=== PATIENT | female | born 1960 | race Caucasian/White ===

== ENCOUNTER 2023-07-24 11:07 | Outpatient (AMB) | payer OTHER, SELFPAY ==
[2023-07-24 11:30] VITALS: BP 164/92; PULSE 70; RESP 17; O2SAT 98; BMI 27.1
--- NOTE | 2023-07-24 11:30 | A.OFFPC_ITS ---
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 ( Request PE ) Medication Coordinator Required: No Accompanied by: Self / Same As Patient Allergies Codeine Sulfate Allergy (Unknown, Uncoded 07/24/23 11:41) Agitated Neosporin Allergy (Unknown, Uncoded 07/24/23 11:41) Hives Medication List - Last Reconciled 07/24/23 by Kaz [place] PA-C clonazepam 1 mg PO BID PRN clotrimazole 1% 1 appl topical BID Tobacco use date assessed: 07/24/23 Fall risk assessment: No Falls in past year Last assessed Fall Risk: 07/24/23 Dental Screening Dental Screen Date: 07/24/23 Did you have a dental visit in the last 12 months?: No Did you have a dental problem in the last 6 months where you did not have access to dental care?: No Was dental information given to patient?: Patient has dentist HPI 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 Patient has a past medical history significant for hypertension, generalized anxiety disorder .. Hypertension: Was on blood pressure medication 2 years ago though was able to discontinue blood pressure medication due to better lifestyle. Today in office blood pressure elevated at 160/90. We did discuss starting blood pressure medication though she would like to hold off and continue monitoring and working on lifestyle modifications to reduce her blood pressure .. Generalized anxiety disorder: She continues to follow psychiatrist whom manages her mental health medication. Was on SSRI therapy in the past though felt to was not effective for her. She does use clonazepam on a daily basis at this time. She does report her living situation is not the past and causes her more anxiety. . History left thyroidectomy: Today in office of noted ? Goiter vs right thyroid lobe nodule on physical exam today. She is willing to get tried ultrasound for evaluation. Vaccines: Declines all vaccines at this time Mammogram: Declines Colon cancer screening: Declines [facility] Social History (Updated 07/24/23 @ 11:48 by Kaz [place], PA-C) Alcohol intake: never Patient Tobacco Use Status: Never used Tobacco e-Cigarette/Vaping Use: Never Used service: No Current occupational status: disabled Cognitive needs: No Hearing needs: No Vision needs: No Questionnaire PHQ-9 Over the last 2 weeks, how often have you been bothered by any of the following problems? 22206 - PHQ-9 Billing: Patient declined-do not bill Source: Developed by Drs. Yash Tierney, Sailaja Huang, Lee Diggs and colleagues, with an educational nara from [employer]. Thrive Questionnaire Date Thrive assessed: 07/24/23 I am a: Patient What is your living situation today?: I have a steady place to live Within the past 12 months, did the food you bought not last and you didn't have the money to get more?: Never true Within the past 12 months, did you worry whether your food would run out before you got money to buy more?: Never true Currently or been in a relationship where the following occur: no concerns reported GEORGE-7 AMB Questionnaire GEORGE-7 Date GEORGE - 7 assessed: 07/24/23 (Pt decline) Source: Developed by Drs. Yash Tierney, Sailaja Huang, Lee Diggs and colleagues, with an educational nara from [employer]. Review of Systems Const Denies headache(s) Eyes Denies loss of vision ENT Denies vertigo, Denies dizziness, Denies headache(s) and Denies sore throat Card Denies chest pain, Denies leg edema and Denies lightheadedness Resp Denies cough, Denies hemoptysis and Denies wheezing GI Denies abdominal pain, Denies melena, Denies constipation, Denies diarrhea and Denies vomiting Denies urinary frequency, Denies dysuria and Denies urinary urgency Musc Denies arthralgias, Denies joint swelling, Denies numbness and Denies tingling Neuro Denies Abnormal speech present, Denies behavioral changes, Denies vertigo, Denies dizziness, Denies headache(s), Denies loss of vision, Denies memory loss, Denies numbness and Denies tingling Psych Denies anxiety, Denies behavioral changes, Denies depression, Denies memory loss and Denies panic attacks Tony/Lymph Denies easy bleeding and Denies easy bruising Aller/Immun Denies wheezing Physical exam (Primary Care) Vital Signs: Last Vital Signs Pulse 70 07/24/23 11:30 Resp 17 07/24/23 11:30 BP 164/92 H 07/24/23 11:30 Pulse Ox 98 07/24/23 11:30 Oxygen Delivery Method Room Air 07/24/23 11:30 BMI result Body Mass Index 27.1 Tobacco/Smoking Status: Tobacco use Status Tobacco use date assessed 07/24/23 07/24/23 11:39 Patient Tobacco Use Status Never used Tobacco 07/24/23 11:48 e-Cigarette/Vaping Use Never Used 07/24/23 11:48 Thrive Assessment: Date of Thrive Assessment Date Thrive assessed 07/24/23 07/24/23 11:39 Currently or been in a relationship where the following occur: no concerns reported Const General: healthy appearing, no acute distress, alert and awake Nutritional Appearance: well nourished Orientation/consciousness: oriented to person, oriented to place and oriented to time HENMT Ears: TM's normal bilaterally General nose exam: Normal nasal mucous membranes and turbinates present Eyes Conjunctivae: conjunctivae normal Sclerae: sclerae normal Pupils: Equal, round and reactive pupils present Neck Neck: Yes no lymphadenopathy and Yes no JVD Thyroid: Thyroid normal Carotids: no bruits Resp Effort & Inspection: normal respiratory effort and not tachypneic Auscultation: no crackles, no rales, no rhonchi and no wheezes Cardio Rate: regular rate Rhythm: regular rhythm Heart sounds: no murmurs and normal S1 and S2 GI Palpation (GI): Soft to palpation, nontender, no hepatomegaly and no splenomegaly Auscultation: normal bowel sounds Skin General skin exam: no rashes or lesions noted and dry skin Neuro General: oriented to person, oriented to place and oriented to time Cranial nerves: Yes Equal, round and reactive pupils present Speech: No Abnormal speech present Gait exam (Neuro): Normal gait present Motor exam (neuro): no tremor noted Extrem Right upper extremity: full ROM Left upper extremity: full ROM Right lower extremity: full ROM; no edema Left lower extremity: full ROM; no edema Psych Mental Status: mental status grossly normal Speech and movement: Normal speech and movement present Affect: normal affect Attitude: cooperative Thought process: Normal thought process present Assessment and Plan Assessment & Plan (1) HTN (hypertension): Code(s): I10 - Essential (primary) hypertension Qualifiers: Hypertension type: primary hypertension Qualified Code(s): I10 - Essential (primary) hypertension Plan: Blood pressure elevated today in office. She attributes her elevations in her blood pressure to her stress and anxiety at this time. She would like to continue monitoring blood pressure at home and work on lifestyle modifications before restarting blood pressure medication. Goal blood pressure is to be below 140/90 (2) GEORGE (generalized anxiety disorder): Code(s): F41.1 - Generalized anxiety disorder Plan: Patient has been suffering with more anxiety and depression to which she is being with a psychiatrist about. She continues to use clonazepam which she reports is helpful for her. We did discuss the habit-forming nature of this medication and patient agrees and understands (3) Hypothyroid: Code(s): E03.9 - Hypothyroidism, unspecified Qualifiers: Hypothyroidism type: acquired Qualified Code(s): E03.9 - Hypothyroidism, unspecified (4) Dermatitis: Code(s): L30.9 - Dermatitis, unspecified (5) Thyromegaly: Code(s): E01.0 - Iodine-deficiency related diffuse (endemic) goiter Plan: Noted is a right-sided thyroid mass today on physical exam. She denies any issues with swallowing or any compressive symptoms. She is willing to get ultrasound to evaluate. (6) S/P thyroidectomy: Code(s): E89.0 - Postprocedural hypothyroidism Orders: Orders Comprehensive [place]. Panel Fast Today I10 - Essential (primary) hypertension TSH reflex Free T4 Today E03.9 - Hypothyroidism, unspecified US thyroid Today E01.0 - Iodine-deficiency related diffuse (endemic) goiter Microalbumin, Random (w Creat) Today I10 - Essential (primary) hypertension Lipid Panel Today I10 - Essential (primary) hypertension PTHI Today E03.9 - Hypothyroidism, unspecified Medications: New clotrimazole-betamethasone 1-0.05 % 1 appl topical BID 30 days 45 grams 1RF L30.9 - Dermatitis, unspecified Coding Level of Care Code New Pt Level 4 (04326) Diagnoses Primary hypertension I10 Hypertension type: primary hypertension GEORGE (generalized anxiety disorder) F41.1 Acquired hypothyroidism E03.9 Hypothyroidism type: acquired Dermatitis L30.9 Thyromegaly E01.0 S/P thyroidectomy E89.0
== END 2023-07-24 12:05 | disposition home or self-care (01) ==
PROVIDERS: PCP Physician Assistant; Visit Provider Physician Assistant
DX: I10 Essential (primary) hypertension (principal); F41.1 Generalized anxiety disorder; E03.9 Hypothyroidism, unspecified; L30.9 Dermatitis, unspecified; E01.0 Iodine-deficiency related diffuse (endemic) goiter; E89.0 Postprocedural hypothyroidism
CPT/HCPCS: 99204

== ENCOUNTER 2023-08-06 14:55 | Outpatient (REF) | payer OTHER, SELFPAY ==
--- NOTE | ~2023-08-06 | US_ITS ---
EXAMINATION: US THYROID CLINICAL INFORMATION: Iodine-deficiency related diffuse (endemic) goiter. History of left thyroidectomy. Noted enlargement right thyroid lobe. COMPARISON: None available. TECHNIQUE: Linear transducer roldan-scale and color Doppler examination with attention to the region of the thyroid. FINDINGS: SIZE: Measurements of the solitary right thyroid lobe and nodules are given in sagittal, anteroposterior and transverse dimensions respectively. Right Thyroid Lobe: 5.8 x 2.4 x 2.8 cm, volume 20.4 mL. Parenchyma: The gland echotexture is homogeneous. Thyroid vascularity is normal. Left Thyroid Lobe: Surgically absent. Isthmus: 0.5 cm in maximum AP dimension. Estimated total number of nodules greater than or equal to 1 cm: 1. 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 Location: Right superior. Size: 0.4 x 0.3 x 0.4 cm, volume 0.03 mL. Nodule characteristics: Composition: Solid (2). Echogenicity: Isoechoic (1). Shape: Not taller than wide (0). Margins: Smooth (0). Echogenic Foci: None (0). ACR TI-RADS total points: 3 ACR TI-RADS category: 3 2. Location: Right superior. Size: 0.9 x 0.4 x 0.6 cm, volume 0.1 mL. Nodule characteristics: Composition: Solid (2). Echogenicity: Isoechoic (1). Shape: Not taller than wide (0). Margins: Smooth (0). Echogenic Foci: None (0). ACR TI-RADS total points: 3 ACR TI-RADS category: 3 3. Location: Right mid. Size: 0.6 x 0.4 x 0.6 cm, volume 0.08 mL. Nodule characteristics: Composition: Solid (2). Echogenicity: Isoechoic (1). Shape: Not taller than wide (0). Margins: Smooth (0). Echogenic Foci: None (0). ACR TI-RADS total points: 3 ACR TI-RADS category: 3 4. Location: Right inferior. Size: 2.3 x 1.9 x 2.0 cm, volume 4.5 mL. Nodule characteristics: Composition: Solid (2). Echogenicity: Isoechoic (1). Shape: Not taller than wide (0). Margins: Smooth (0). Echogenic Foci: Punctate echogenic foci (3). ACR TI-RADS total points: 6 ACR TI-RADS category: 4 5. Location: Right inferior. Size: 0.7 x 0.3 x 0.6 cm, volume 0.07 mL. Nodule characteristics: Composition: Solid (2). Echogenicity: Hypoechoic (2). Shape: Not taller than wide (0). Margins: Smooth (0). Echogenic Foci: None (0). ACR TI-RADS total points: 4 ACR TI-RADS category: 4 NODES: No lymphadenopathy is seen in the tissue surrounding the thyroid gland. US/US thyroid IMPRESSION: 1. Left thyroid lobe surgically absent. 2. Multiple right thyroid nodules. Right lower 2.3 cm TR 4 thyroid nodule meets criteria for biopsy. Fine-needle aspiration recommended. This study was presented today 08/07/2023 at 9:43 AM for interpretation. PSA staff will provide results to referring provider at this time. ACR TI-RADS RECOMMENDATION REFERENCE: Ultrasound-guided fine-needle aspiration, followup ultrasound, no further follow up. * TR1 (0 point) and TR2 (2 points): No FNA or follow up. * TR3 (3 points): FNA if more than or equal to 2.5 cm in maximum dimension, followup ultrasound in 1, 3 and 5 years if 1.5 to 2.4 cm in maximum dimension. * TR4 (4-6 points): FNA if more than or equal to 1.5 cm in maximum dimension, followup ultrasound in 1, 2, 3 and 5 years if 1 to 1.4 cm in maximum dimension. * TR5 (more than or equal to 7 points): FNA if more than or equal to 1 cm in maximum dimension, followup ultrasound every year for 5 years if 0.5 to 0.9 cm in maximum dimension. * TR3, TR4 or TR5 nodules that are below the size threshold for followup receive no follow up.
== END 2023-08-06 14:56 | disposition home or self-care (01) ==
LOC: HO.US 14:55
PROVIDERS: PCP Physician Assistant; Visit Provider Physician Assistant
DX: E01.0 Iodine-deficiency related diffuse (endemic) goiter (principal)
CPT/HCPCS: 76536

== ENCOUNTER 2023-08-27 09:54 | Outpatient (REF) | payer OTHER, SELFPAY ==
--- NOTE | ~2023-08-27 | US_ITS ---
ULTRASOUND-GUIDED THYROID NODULE FINE NEEDLE ASPIRATION INDICATION: Right lower pole thyroid nodule, dominant, for biopsy/FNA Procedure: Informed consent was obtained from the patient prior to the procedure. During this process, the procedure and potential alternatives were explained, along with the intended outcome and benefits. The risks of the procedure, as well as the risks of not doing the procedure, were discussed. The patient was given the opportunity to ask questions regarding the procedure and appeared competent to make medical decisions. A signed consent form which documents this discussion was placed in the medical record. A timeout was performed in the room. The patient was placed in a supine position with the neck extended. The right side of the neck and chest was prepped and draped in routine sterile fashion. 1% lidocaine was used anesthesia 4 skin and subcutaneous tissues. Under real-time ultrasound guidance, a 25-gauge needle was placed into the nodule and FNA was performed utilizing standard technique. A total of 4 aspirations were performed. The specimens were placed in CytoLyt and and the Affirma bottle. Postprocedure images showed no hematoma. A Band-Aid was applied to the access site. The patient tolerated the procedure well with no immediate complications. Permanent ultrasound images were archived to the procedure. US/US biopsy thyroid IMPRESSION: Right thyroid nodule fine-needle aspiration. Await pathology. This procedure was performed by Baldemar Correa PA-C, and directly supervised by Dr. Cramer
[2023-08-27] MEDS: Lidocaine HCl 1 % MPF 5 ML VIAL SUBCUT (11:10)
== END 2023-08-27 09:55 | disposition home or self-care (01) ==
LOC: HO.US 09:54
PROVIDERS: PCP Physician Assistant; Visit Provider Physician Assistant
DX: E01.0 Iodine-deficiency related diffuse (endemic) goiter (principal)
CPT/HCPCS: 10005; 88173; 88305

== ENCOUNTER → 2023-08-27 09:56 | Outpatient (BNV) | payer OTHER, SELFPAY | PROVIDERS: PCP Physician Assistant; Visit Provider Radiology Diagnostic Radiology | DX: E04.1 Nontoxic single thyroid nodule (principal) | CPT/HCPCS: 10005 ==

== ENCOUNTER 2024-04-09 12:20 | Outpatient (AMB) | payer OTHER, SELFPAY ==
--- NOTE | 2024-04-09 12:46 | MHC.PC.OV ---
Vital Signs 04/09/24 12:47 Height 5 ft 6 in Weight 170 lb BMI 27.4 BP 152/90 H Blood Pressure Location Lt brachial Position Sitting Pulse 80 Pulse Source Pulse Oximeter Pulse Oximetry (%) 98 Oxygen Delivery Method Room Air Intake Visit Reasons: Physical Exam Intake Note: Patient is here today for a physical. Tribunal Member Required: No Accompanied by: Self / Same As Patient Allergies Codeine Sulfate Allergy (Unknown, Uncoded 04/09/24 13:04) Agitated Neosporin Allergy (Unknown, Uncoded 04/09/24 13:04) Hives Medication List - Last Reconciled 04/09/24 by Kaz Gillette PA-C clonazepam 1 mg PO BID PRN clotrimazole-betamethasone 1-0.05 % 1 appl topical BID 30 days Tobacco use date assessed: 04/09/24 Fall risk assessment: No Falls in past year Last assessed Fall Risk: 04/09/24 Dental Screening Dental Screen Date: 04/09/24 Did you have a dental visit in the last 12 months?: Yes Did you have a dental problem in the last 6 months where you did not have access to dental care?: No Was dental information given to patient?: Patient has dentist HPI Physical Exam HPI Details Patient is a 63-year-old female here today for a PE. Patient has a past medical history significant for hypertension, generalized anxiety disorder .. Hypertension: Was on blood pressure medication 2 years ago though was able to discontinue blood pressure medication due to better lifestyle. Today in office blood pressure elevated . We did discuss starting blood pressure medication and she is willing to restart losartan 50 mg. .. Generalized anxiety disorder: She continues to follow psychiatrist whom manages her mental health medication. Was on SSRI therapy in the past though felt to was not effective for her. She does use clonazepam on a daily basis at this time. She does report her living situation is not the past and causes her more anxiety. . Borderline high total cholesterol: Most recent labs showing borderline high cholesterol, will work on lifestyle and dietary modifications . History left thyroidectomy: Patient did undergo thyroid ultrasound and biopsy with benign pathology. She still concerned as she can still see a small lump in the right side of her neck. Out of abundance of caution will do a repeat ultrasound in the fall 2023 otherwise TSH has been stable. Vaccines: Declines all vaccines at this time Mammogram: Declines Colon cancer screening: Declines [facility] Social History (Updated 04/09/24 @ 13:09 by Kaz Gillette PA-C) Housing: House Alcohol intake: current Alcohol intake frequency: holidays/special occasions only Alcohol type: wine Patient Tobacco Use Status: Never used Tobacco e-Cigarette/Vaping Use: Never Used service: No Current occupational status: disabled Cognitive needs: No Hearing needs: No Vision needs: No Questionnaire PHQ-9 Over the last 2 weeks, how often have you been bothered by any of the following problems? 53189 - PHQ-9 Billing: Patient declined-do not bill Source: Developed by Drs. Yash Tierney, Lee Faye and colleagues, with an educational nara from [employer]. Thrive Questionnaire Date Thrive assessed: 04/09/24 I am a: Patient What is your living situation today?: I have a steady place to live Within the past 12 months, did the food you bought not last and you didn't have the money to get more?: Never true Within the past 12 months, did you worry whether your food would run out before you got money to buy more?: Never true Do you have trouble paying for medicines?: No Do you have trouble getting transportation to medical appointments?: No Do you have trouble paying your heating and electricity bill?: No Do you have trouble taking care of your child, family member or friend?: No Do you have trouble with day-to-day activities such as bathing, preparing meals, shopping, managing finances, etc.?: No Are you currently unemployed and looking for a job?: No Are you interested in more education?: No Please select the resources that you would like help with: None Currently or been in a relationship where the following occur: no concerns reported THRIVE Score: 0 AUDIT C Alcohol Use Questionnaire (AUDIT-C) 1. How often do you have a drink containing alcohol?: Monthly or less 2. How many drinks containing alcohol do you have on a typical day when you are drinking?: 1 or 2 3. How often do you have six or more drinks on one occasion?: Never Total Score: 1 GEORGE-7 AMB Questionnaire GEORGE-7 Date GEORGE - 7 assessed: 04/09/24 (Pt decline) Source: Developed by Drs. Yash L. Sailaja Tierney, Lee Diggs and colleagues, with an educational nara from [employer]. GEORGE-7 Assessment Billing GEORGE-7 Assessment Tool: pt declined-do not bill Review of Systems Const Denies body aches, Denies chills, Denies excessive sweating, Denies fatigue, Denies fever(s) and Denies headache(s) Eyes Denies blurry vision ENT Denies dysphagia, Denies vertigo, Denies dizziness, Denies headache(s), Denies hearing loss and Denies tinnitus Card Denies chest pain, Denies chest pain with activity, Denies syncope, Denies irregular heart rhythm and Denies dyspnea Resp Denies chest congestion, Denies cough, Denies hemoptysis, Denies dyspnea and Denies wheezing GI Denies abdominal pain, Denies melena, Denies hematochezia, Denies coffee ground emesis, Denies dysphagia, Denies diarrhea, Denies nausea and Denies vomiting Denies urinary frequency, Denies dysuria, Denies urinary hesitancy and Denies urinary urgency Musc Denies arthralgias, Denies limited range of motion, Denies muscle cramps and Denies muscle weakness Skin/Breast Denies rash and Denies skin ulcer Neuro Denies Abnormal speech present, Denies confusion, Denies vertigo, Denies dizziness, Denies syncope, Denies headache(s), Denies memory loss and Denies seizure-like activity Psych Denies anxiety, Denies confusion, Denies depression, Denies memory loss, Denies panic attacks and Denies paranoia Endo Denies excessive sweating, Denies fatigue, Denies flushing, Denies polydipsia and Denies polyuria Aller/Immun Denies wheezing Physical exam (Primary Care) Vital Signs: Last Vital Signs Pulse 80 04/09/24 12:47 BP 152/90 H 04/09/24 12:47 Pulse Ox 98 04/09/24 12:47 Oxygen Delivery Method Room Air 04/09/24 12:47 BMI result Body Mass Index 27.4 Tobacco/Smoking Status: Tobacco use Status Tobacco use date assessed 04/09/24 04/09/24 12:53 Patient Tobacco Use Status Never used Tobacco 04/09/24 12:46 e-Cigarette/Vaping Use Never Used 04/09/24 12:46 Thrive Assessment: Date of Thrive Assessment Date Thrive assessed 04/09/24 04/09/24 12:53 Currently or been in a relationship where the following occur: no concerns reported Const General: cooperative, comfortable, no acute distress, alert and awake; No confusion Orientation/consciousness: oriented to person, oriented to place, patient oriented x3 and No confusion HENUT Head: Yes normocephalic Ears: external ears normal and TM's normal bilaterally Face and sinus: No sinus tenderness Mouth: Normal oral and palatal mucosa present and tongue normal Teeth and gingiva: dentition normal and gingiva normal Throat: Yes posterior oropharynx normal, Yes tonsils normal and Yes uvula midline Eyes Conjunctivae: conjunctivae normal Sclerae: sclerae normal Pupils: Equal, round and reactive pupils present EOM: EOMs intact bilaterally Direct Ophthalmoscopy: No no photophobia Neck Neck: Yes no lymphadenopathy, No tender and Yes no JVD Thyroid: Thyroid normal Carotids: no bruits Chest Chest palpation & inspection: no tenderness Resp Effort & Inspection: normal respiratory effort, no audible wheezes, not labored and no stridor Auscultation: no crackles, no rales, no rhonchi and no wheezes Cardio Jugular venous distension: no JVD Rate: regular rate, not bradycardic and not tachycardic Rhythm: regular rhythm Bruits: no carotid bruits Peripheral pulses: Peripheral pulses 2+ throughout GI Inspection: Yes normal to inspection, No abdominal wall ecchymosis and No visible herniation Palpation (GI): Soft to palpation, nontender, no guarding, not rigid and No hepatosplenomegaly present Auscultation: normoactive bowel sounds General: Yes no CVA tenderness Back/Spine/Pelvis Back: no CVA tenderness and No back tenderness Cervical Spine: cervical ROM normal Thoracic/Lumbar Spine: thoracic and lumbar spine normal to inspection, straight leg raise negative bilaterally, No thoraco-lumbar ROM limited and No lumbar spinal tenderness Skin Lesions: no lesions Rashes: no rashes Wounds: no wounds Neuro General: oriented to person, oriented to place, patient oriented x3, CN's II-XI intact bilaterally and No confusion Cranial nerves: Yes Equal, round and reactive pupils present and Yes Normal accommodation reflex present Cognition (Neuro): normal cognition Speech: No Abnormal speech present Gait exam (Neuro): Normal gait present Motor exam (neuro): 5/5 motor strength present throughout Extrem Right upper extremity: full ROM; no cyanosis Left upper extremity: full ROM; no cyanosis Right lower extremity: no edema Left lower extremity: no edema Psych Appearance: grossly normal Mental Status: mental status grossly normal Affect: normal affect Attitude: cooperative Thought process: Normal thought process present Assessment and Plan Assessment & Plan (1) Annual physical exam: Code(s): Z00.00 - Encounter for general adult medical examination without abnormal findings (2) HTN (hypertension): Code(s): I10 - Essential (primary) hypertension Qualifiers: Hypertension type: primary hypertension Qualified Code(s): I10 - Essential (primary) hypertension Plan: Blood pressure elevated today in office. She attributes her elevations in her blood pressure to her stress and anxiety at this time. She does regularly check her blood pressure at home reports high readings. She is willing to restart losartan 50 mg and continue monitoring blood pressure Goal blood pressure is to be below 140/90 (3) GEORGE (generalized anxiety disorder): Code(s): F41.1 - Generalized anxiety disorder Plan: Patient has been suffering with more anxiety and depression to which she is being with a psychiatrist about. She continues to use clonazepam which she reports is helpful for her. We did discuss the habit-forming nature of this medication and patient agrees and understands (4) Hypothyroid: Code(s): E03.9 - Hypothyroidism, unspecified Qualifiers: Hypothyroidism type: acquired Qualified Code(s): E03.9 - Hypothyroidism, unspecified Plan: Will recheck TSH. Has history of multi thyroid nodule. (5) Thyromegaly: Code(s): E01.0 - Iodine-deficiency related diffuse (endemic) goiter Plan: Noted is a right-sided thyroid mass today on physical exam. She denies any issues with swallowing or any compressive symptoms. She is willing to get surveillance ultrasound to evaluate. (6) Lumbar spine pain: Code(s): M54.50 - Low back pain, unspecified Plan: Reports injuring her upper lower back lifting in A-C. She was seen at urgent care and given x-rays without any significant findings. Her pain has gradually been getting better. (7) Borderline high cholesterol: Code(s): E78.9 - Disorder of lipoprotein metabolism, unspecified Plan: Most recent lipid panel showing borderline high total cholesterol. She will work on lifestyle and dietary modifications to reduce her total cholesterol. Goal LDL is to be below 160 Orders: Orders US thyroid 4 Months E04.2 - Nontoxic multinodular goiter Microalbumin, Random (w Creat) Today I10 - Essential (primary) hypertension Lipid Panel Today E78.9 - Disorder of lipoprotein metabolism, unspecified TSH reflex Free T4 Today E03.9 - Hypothyroidism, unspecified Comprehensive [place]. Panel Fast Today I10 - Essential (primary) hypertension Complete Blood Count no Diff Today I10 - Essential (primary) hypertension Medications: New losartan 50 mg PO DAILY 90 days 90 tabs 1RF I10 - Essential (primary) hypertension Patient Instructions: Goal: Blood pressure to be below 140/90 Barrier: Adherence to physical activity and healthy eating habits Coding Level of Care Code Est Pt Prev Care >65y(91595) Diagnoses Annual physical exam Z00.00 Primary hypertension I10 Hypertension type: primary hypertension GEORGE (generalized anxiety disorder) F41.1 Acquired hypothyroidism E03.9 Hypothyroidism type: acquired Thyromegaly E01.0 Lumbar spine pain M54.50 Borderline high cholesterol E78.9
[2024-04-09 12:47] VITALS: BP 152/90; PULSE 80; O2SAT 98; BMI 27.4
== END 2024-04-09 13:30 | disposition home or self-care (01) ==
PROVIDERS: PCP Physician Assistant; Visit Provider Physician Assistant
DX: Z00.00 Encounter for general adult medical examination without abnormal findings (principal); I10 Essential (primary) hypertension; F41.1 Generalized anxiety disorder; E03.9 Hypothyroidism, unspecified; E01.0 Iodine-deficiency related diffuse (endemic) goiter; M54.50 Low back pain, unspecified; E78.9 Disorder of lipoprotein metabolism, unspecified
CPT/HCPCS: 99397

== ENCOUNTER 2024-08-05 12:46 | Outpatient (REF) | payer OTHER, SELFPAY ==
--- NOTE | ~2024-08-05 | US_ITS ---
EXAMINATION: US THYROID CLINICAL INFORMATION: Nontoxic multinodular goiter. COMPARISON: Ultrasound-guided thyroid biopsy dated 08/27/2023. Ultrasound soft tissue head/neck thyroid dated 08/06/2023. TECHNIQUE: Linear transducer grayscale and color Doppler examination with attention to the region of the thyroid. FINDINGS: Submitted for interpretation on August 25, 2024. SIZE: Measurements of the solitary right thyroid lobe and nodules are given in sagittal, anteroposterior and transverse dimensions respectively. Right Thyroid Lobe: 6.4 x 2.3 x 2.1 cm, volume 15.7 mL. Previously 5.8 x 2.4 x 2.8 cm, volume 20.4 mL. Parenchyma: The gland echotexture is homogeneous. Thyroid vascularity is normal. Left Thyroid Lobe: Surgically absent. Isthmus: 0.5 cm in maximum AP dimension. Previously 0.5 cm. Estimated total number of nodules greater than or equal to 1 cm: 1. Jitney Driver nodules are described as follows: 1. Location: Right superior. Size: 0.4 x 0.2 x 0.2 cm, volume 0.009 mL. Previously: 0.4 x 0.3 x 0.4 cm, volume 0.03 mL. Nodule characteristics: Composition: Solid (2). Echogenicity: Isoechoic (1). Shape: Not taller than wide (0). Margins: Smooth (0). Echogenic Foci: None (0). ACR TI-RADS total points: 3 Previous: 3 ACR TI-RADS category: 3 Previous: 3 Significant change in size (>/= 20% in 2 dimensions and minimal increase of 2 mm or 50% or greater increase in volume): Change in features: Change in ACR TI-RADS risk category: 2. Location: Right superior. Size: 0.3 x 0.2 x 0.4 cm, volume 0.015 mL. Previously: New since the previous study. Nodule characteristics: Composition: Cystic(0). ACR TI-RADS total points: 0 ACR TI-RADS category: 1 3. Location: Right mid. Size: 2.1 x 2.6 x 2.1 cm, volume 6.0 mL. Previously: 2.3 x 1.9 x 2.0 cm, volume 4.5 mL. Nodule characteristics: Composition: Solid (2). Echogenicity: Hyperechoic (1). Shape: Taller than wide (3). Margins: Irregular (2). Echogenic Foci: None (0). ACR TI-RADS total points: 8 Previous: 6 ACR TI-RADS category: 5 Previous: 4 Significant change in size (>/= 20% in 2 dimensions and minimal increase of 2 mm or 50% or greater increase in volume): Change in features: Change in ACR TI-RADS risk category: 4. Location: Right inferior. Size: 0.7 x 0.4 x 0.6 cm, volume 0.1 mL. Previously: 0.6 x 0.4 x 0.6 cm, volume 0.08 mL. Nodule characteristics: Composition: Solid (2). Echogenicity: Hypoechoic (2). Shape: Not taller than wide (0). Margins: Smooth (0). Echogenic Foci: None (0). ACR TI-RADS total points: 4 Previous: 3 ACR TI-RADS category: 4 Previous: 3 Significant change in size (>/= 20% in 2 dimensions and minimal increase of 2 mm or 50% or greater increase in volume): Change in features: Change in ACR TI-RADS risk category: 5. Location: Right inferior. Size: 0.7 x 0.5 x 0.8 cm, volume 0.15 mL. Previously: 0.7 x 0.3 x 0.6 cm, volume 0.07 mL. Nodule characteristics: Composition: Solid (2). Echogenicity: Hypoechoic (2). Shape: Not taller than wide (0). Margins: Smooth (0). Echogenic Foci: None (0). ACR TI-RADS total points: 4 Previous: 4 ACR TI-RADS category: 4 Previous: 4 Significant change in size (>/= 20% in 2 dimensions and minimal increase of 2 mm or 50% or greater increase in volume): Change in features: Change in ACR TI-RADS risk category: NODES: No lymphadenopathy is seen in the tissue surrounding the thyroid gland. US/US thyroid IMPRESSION: ACR BI-RADS 2. ACR TI-RADS RECOMMENDATION REFERENCE: Ultrasound-guided fine-needle aspiration, follow up ultrasound, no further followup. * TR1 (0 point) and TR2 (2 points): No FNA or followup * TR3 (3 points): FNA if more than or equal to 2.5 cm in maximum dimension, follow up ultrasound in 1, 3 and 5 years if 1.5 to 2.4 cm in maximum dimension. * TR4 (4-6 points): FNA if more than or equal to 1.5 cm in maximum dimension, follow up ultrasound in 1, 2, 3 and 5 years if 1 to 1.4 cm in maximum dimension. * TR5 (more than or equal to 7 points): FNA if more than or equal to 1 cm in maximum dimension, follow up ultrasound every year for 5 years if 0.5 to 0.9 cm in maximum dimension. * TR3, TR4 or TR5 nodules that are below the size threshold for follow up receive no followup. Electronically signed by: Louis Pedraza MD 08/25/2024 03:51 PM [facility]
== END 2024-08-05 12:47 | disposition home or self-care (01) ==
LOC: HO.US 12:46
PROVIDERS: PCP Physician Assistant; Visit Provider Physician Assistant
DX: E04.2 Nontoxic multinodular goiter (principal)
CPT/HCPCS: 76536

== ENCOUNTER → 2024-08-05 12:48 | Outpatient (BNV) | payer OTHER, SELFPAY | PROVIDERS: PCP Physician Assistant; Visit Provider Radiology Diagnostic Radiology | DX: E04.2 Nontoxic multinodular goiter (principal) | CPT/HCPCS: 76536 ==

== ENCOUNTER 2024-08-14 13:28 | Outpatient (AMB) | payer OTHER, SELFPAY ==
[2024-08-14 14:13] VITALS: BP 158/92; PULSE 68; O2SAT 98; BMI 28.2
--- NOTE | 2024-08-14 14:13 | MHC.PC.OV ---
Vital Signs 08/14/24 14:13 Height 5 ft 6 in Weight 174 lb 13.225 oz BMI 28.2 BP 158/92 H Blood Pressure Location Lt brachial Position Sitting Pulse 68 Pulse Source Pulse Oximeter Pulse Oximetry (%) 98 Oxygen Delivery Method Room Air Intake Visit Reasons: 4 month follow up Allergies Codeine Sulfate Allergy (Unknown, Uncoded 08/14/24 14:18) Agitated Neosporin Allergy (Unknown, Uncoded 08/14/24 14:18) Hives Medication List - Last Reconciled 08/14/24 by Kaz Gillette PA-C clonazepam 1 mg PO BID PRN clotrimazole-betamethasone 1-0.05 % 1 appl topical BID 30 days losartan 50 mg PO DAILY 90 days Tobacco use date assessed: 04/09/24 Dental Screening Dental Screen Date: 04/09/24 HPI 4 month follow up HPI Details Patient is a 64-year-old female here today for follow-up visit. Patient has a past medical history significant for hypertension, generalized anxiety disorder .. Hypertension: Today blood pressure elevated in office. She is not consistent with taking her losartan. She is not regularly taking her blood pressure readings at home. She promises to start checking her blood pressure and taking losartan on a regular basis. She reports good blood pressure readings when consistently on blood pressure medication. .. Generalized anxiety disorder: She continues to follow psychiatrist whom manages her mental health medication. Was on SSRI therapy in the past though felt to was not effective for her. She does use clonazepam on a daily basis at this time. She does report her living situation is not the past and causes her more anxiety. . Borderline high total cholesterol: Most recent labs showing borderline high cholesterol, will work on lifestyle and dietary modifications . History left thyroidectomy: Patient did undergo thyroid ultrasound and biopsy with benign pathology. She still concerned as she can still see a small lump in the right side of her neck. Patient did do a repeat ultrasound of her thyroid and is awaiting radiology report results. She otherwise denies any anterior neck pain or compressive symptoms such as difficulty with swallowing [facility] Social History Housing: House Alcohol intake: current Alcohol intake frequency: holidays/special occasions only Alcohol type: wine Patient Tobacco Use Status: Never used Tobacco e-Cigarette/Vaping Use: Never Used service: No Current occupational status: disabled Cognitive needs: No Hearing needs: No Vision needs: No Questionnaire Thrive Questionnaire Date Thrive assessed: 04/09/24 GEORGE-7 AMB Questionnaire GEORGE-7 Date GEORGE - 7 assessed: 04/09/24 (Pt decline) Source: Developed by Drs. Yash Tierney, Sailaja Huang, Lee Diggs and colleagues, with an educational nara from [employer]. Review of Systems Const Denies headache(s) Eyes Denies loss of vision ENT Denies vertigo, Denies dizziness, Denies headache(s) and Denies sore throat Card Denies chest pain, Denies leg edema and Denies lightheadedness Resp Denies cough, Denies hemoptysis and Denies wheezing GI Denies abdominal pain, Denies melena, Denies constipation, Denies diarrhea and Denies vomiting Denies urinary frequency, Denies dysuria and Denies urinary urgency Musc Denies arthralgias, Denies joint swelling, Denies numbness and Denies tingling Neuro Denies Abnormal speech present, Denies behavioral changes, Denies vertigo, Denies dizziness, Denies headache(s), Denies loss of vision, Denies memory loss, Denies numbness and Denies tingling Psych Denies anxiety, Denies behavioral changes, Denies depression, Denies memory loss and Denies panic attacks Tony/Lymph Denies easy bleeding and Denies easy bruising Aller/Immun Denies wheezing Physical exam (Primary Care) Vital Signs: Last Vital Signs Pulse 68 08/14/24 14:13 BP 158/92 H 08/14/24 14:13 Pulse Ox 98 08/14/24 14:13 Oxygen Delivery Method Room Air 08/14/24 14:13 BMI result Body Mass Index 28.2 Tobacco/Smoking Status: Tobacco use Status Tobacco use date assessed 04/09/24 08/14/24 14:13 Patient Tobacco Use Status Never used Tobacco 08/14/24 14:13 e-Cigarette/Vaping Use Never Used 08/14/24 14:13 Thrive Assessment: Date of Thrive Assessment Date Thrive assessed 04/09/24 08/14/24 14:13 Const General: healthy appearing, no acute distress, alert and awake Nutritional Appearance: well nourished Orientation/consciousness: oriented to person, oriented to place and oriented to time HENMT Ears: TM's normal bilaterally General nose exam: Normal nasal mucous membranes and turbinates present Eyes Conjunctivae: conjunctivae normal Sclerae: sclerae normal Pupils: Equal, round and reactive pupils present Neck Neck: Yes no lymphadenopathy and Yes no JVD Thyroid: Thyroid normal Carotids: no bruits Resp Effort & Inspection: normal respiratory effort and not tachypneic Auscultation: no crackles, no rales, no rhonchi and no wheezes Cardio Rate: regular rate Rhythm: regular rhythm Heart sounds: no murmurs and normal S1 and S2 GI Palpation (GI): Soft to palpation, nontender, no hepatomegaly and no splenomegaly Auscultation: normal bowel sounds Skin General skin exam: no rashes or lesions noted and dry skin Neuro General: oriented to person, oriented to place and oriented to time Cranial nerves: Yes Equal, round and reactive pupils present Speech: No Abnormal speech present Gait exam (Neuro): Normal gait present Motor exam (neuro): no tremor noted Extrem Right upper extremity: full ROM Left upper extremity: full ROM Right lower extremity: full ROM; no edema Left lower extremity: full ROM; no edema Psych Mental Status: mental status grossly normal Speech and movement: Normal speech and movement present Affect: normal affect Attitude: cooperative Thought process: Normal thought process present Office Procedures Flu Questionnaire Does the patient have a severe egg allergy?: No Immunizations Fluarix Triv [id number] (PF) 45 mcg (15 mcg x 3)/0.5 mL IM syringe Performing Provider: Kaz Gillette PA-C [facility] Documented (not given) by: OPAL Best on 08/14/24 14:14 Reason Not Given: Patient Refused Coding Level of Care Code Est Pt Level 4 (35571) Diagnoses Primary hypertension I10 Hypertension type: primary hypertension Borderline high cholesterol E78.9 Multiple thyroid nodules E04.2 Assessment & Plan Assessment & Plan (1) HTN (hypertension): Code(s): I10 - Essential (primary) hypertension Category: Medical Qualifiers: Hypertension type: primary hypertension Qualified Code(s): I10 - Essential (primary) hypertension Plan: Patient's blood pressure elevated today in office. She has not been consistent with her losartan dose. She promises to be more consistent with her losartan with goal blood pressure to be below 140/90 (2) Borderline high cholesterol: Code(s): E78.9 - Disorder of lipoprotein metabolism, unspecified Category: Medical Plan: Patient's most recent lipid panel showing borderline high total cholesterol. She will work on lifestyle and dietary modifications to reduce her cholesterol. Goal LDL to be below 130 (3) Multiple thyroid nodules: Code(s): E04.2 - Nontoxic multinodular goiter Category: Medical Plan: Patient has multiple thyroid cysts. Most recent biopsies were benign. Has a recent ultrasound she is awaiting results on. She is concerned about her cyst/nodules turning into cancer and would like to see a sample book maker for further evaluation. Orders: Orders Influenza [id number] Immunization Today Z23 - Encounter for immunization Referrals Endocrinology Referral E04.2 - Nontoxic multinodular goiter Medications: Refilled losartan 50 mg PO DAILY 90 days 90 tabs 1RF I10 - Essential (primary) hypertension
== END 2024-08-14 14:41 | disposition home or self-care (01) ==
PROVIDERS: PCP Physician Assistant; Visit Provider Physician Assistant
DX: I10 Essential (primary) hypertension (principal); E78.9 Disorder of lipoprotein metabolism, unspecified; E04.2 Nontoxic multinodular goiter; Z23 Encounter for immunization

== ENCOUNTER → 2024-08-14 13:28 | Outpatient (BNVA) | payer OTHER, SELFPAY | PROVIDERS: PCP Physician Assistant; Visit Provider Physician Assistant | DX: I10 Essential (primary) hypertension (principal); E78.9 Disorder of lipoprotein metabolism, unspecified; E04.2 Nontoxic multinodular goiter | CPT/HCPCS: 90471; 99212 ==

== ENCOUNTER 2024-08-28 12:19 | Outpatient (REF) | payer OTHER, SELFPAY ==
[2024-08-28 15:19] LABS: Thyroid Stimulating Hormone 1.26 uIU/mL (0.32-4.0)
== END 2024-08-28 12:20 | disposition home or self-care (01) ==
LOC: HO.LAB 12:19
PROVIDERS: PCP Physician Assistant; Visit Provider Student in an Organized Health Care Education/Training Program
DX: E04.2 Nontoxic multinodular goiter (principal)
CPT/HCPCS: 36415; 84439; 84443; 99202

== ENCOUNTER 2024-08-28 12:19 | Outpatient (AMB) | payer OTHER, SELFPAY ==
--- NOTE | 2024-08-28 12:33 | A.OFFVIS_ITS ---
Vital Signs 3 08/28/24 12:34 Height 5 ft 6 in Weight 170 lb 10.205 oz BMI 27.5 BP 160/100 H Blood Pressure Location Lt brachial Position Sitting Pulse 58 Pulse Source Pulse Oximeter Intake Visit Reasons: Nontoxic multinodular goiter/confirmed Intake Note: Patient present today for nontoxic multinodular goiter office visit. 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 S/ P left lobectomy either at [facility] or [facility] 15 years ago for thyroid nodules which per patient were biopsied and they couldnt find much in it , per patient pathology post surgery was benign. Dr. Nasrin Morley was her prior lead rider. I dono t have these records at this time. Thyroid ultrasound from 08/06/2023 showed a dominant right inferior 2.3 cm nodule, solid, isoechoic punctate echogenic foci. Other subcentimeter nodules noted. Patient underwent FNA of the right 2.3 cm dominant nodule on 08/27/2023 which came back benign ([place] category 2). Most recent thyroid ultrasound done on 08/05/2024 (I reviewed the images myself) again showed multiple subcentimeter right-sided lymph nodes in her right dominant mid lobe 2.6 cm nodule which has increased in size to 2.1 X 2.6 X 2.1 cm from previous size of 2.3 X 1.9 X 2 cm. Volume from 4.5 mL to 6 ml. The nodule is, solid, hyperechoic, taller than wide, with irregular margins. No recent TFTs in the system. Patient currently denies heat or cold intolerance, diarrhea or constipation, weight changes, mood changes, low energy, changes in appearance of eyes or vision changes, tremors, increased diaphoresis or dry skin. ? Reports intermittent palpitations. She reports excessive anxiety. Reports hair loss. Patient denies any difficulty swallowing, pain on swallowing or voice changes or difficulty breathing. Patient denies any history of childhood neck radiation. Denies having ever used lithium, amiodarone or biotin supplements. Patient denies any family history of thyroid cancer or thyroid disease. Patient doesnt know her family medical history. Quit smoking 36 years ago. Review of systems Constitutional: no fevers, chills or weight loss HEENT: no changes in vision Cardiac: No chest pain, discomfort Pulmonary: No SOB GI:No abdominal pain, no nausea or vomiting, no anorexia, no blood in stool : no burning micturition, dysuria or increase in urinary frequency Physical exam General: sitting comfortably in no acute distress HEENT: normocephalic/atraumatic, moist oral mucosa Neck: supple, palpable 2 cm right-sided thyroid nodule, firm Cardiac: normal heart sounds Pulm: normal breath sounds B/L, no added breath sounds Abd: not distended, no tenderness Extremities: no edema, no signs of myxedema Neuro: AAO x3, Speech: normal, no facial droop, moving all 4 extremities Labs Imaging US THYROID 08/05/2024 CLINICAL INFORMATION: Nontoxic multinodular goiter. COMPARISON: Ultrasound-guided thyroid biopsy dated 08/27/2023. Ultrasound soft tissue head/neck thyroid dated 08/06/2023. TECHNIQUE: Linear transducer grayscale and color Doppler examination with attention to the region of the thyroid. FINDINGS: Submitted for interpretation on August 25, 2024. SIZE: Measurements of the solitary right thyroid lobe and nodules are given in sagittal, anteroposterior and transverse dimensions respectively. Right Thyroid Lobe: 6.4 x 2.3 x 2.1 cm, volume 15.7 mL. Previously 5.8 x 2.4 x 2.8 cm, volume 20.4 mL. Parenchyma: The gland echotexture is homogeneous. Thyroid vascularity is normal. Left Thyroid Lobe: Surgically absent. Isthmus: 0.5 cm in maximum AP dimension. Previously 0.5 cm. Estimated total number of nodules greater than or equal to 1 cm: 1. [employer] nodules are described as follows: 1. Location: Right superior. Size: 0.4 x 0.2 x 0.2 cm, volume 0.009 mL. Previously: 0.4 x 0.3 x 0.4 cm, volume 0.03 mL. Nodule characteristics: Composition: Solid (2). Echogenicity: Isoechoic (1). Shape: Not taller than wide (0). Margins: Smooth (0). Echogenic Foci: None (0). ACR TI-RADS total points: 3 Previous: 3 ACR TI-RADS category: 3 Previous: 3 Significant change in size (>/= 20% in 2 dimensions and minimal increase of 2 mm or 50% or greater increase in volume): Change in features: Change in ACR TI-RADS risk category: 2. Location: Right superior. Size: 0.3 x 0.2 x 0.4 cm, volume 0.015 mL. Previously: New since the previous study. Nodule characteristics: Composition: Cystic(0). ACR TI-RADS total points: 0 ACR TI-RADS category: 1 3. Location: Right mid. Size: 2.1 x 2.6 x 2.1 cm, volume 6.0 mL. Previously: 2.3 x 1.9 x 2.0 cm, volume 4.5 mL. Nodule characteristics: Composition: Solid (2). Echogenicity: Hyperechoic (1). Shape: Taller than wide (3). Margins: Irregular (2). Echogenic Foci: None (0). ACR TI-RADS total points: 8 Previous: 6 ACR TI-RADS category: 5 Previous: 4 Significant change in size (>/= 20% in 2 dimensions and minimal increase of 2 mm or 50% or greater increase in volume): Change in features: Change in ACR TI-RADS risk category: 4. Location: Right inferior. Size: 0.7 x 0.4 x 0.6 cm, volume 0.1 mL. Previously: 0.6 x 0.4 x 0.6 cm, volume 0.08 mL. Nodule characteristics: Composition: Solid (2). Echogenicity: Hypoechoic (2). Shape: Not taller than wide (0). Margins: Smooth (0). Echogenic Foci: None (0). ACR TI-RADS total points: 4 Previous: 3 ACR TI-RADS category: 4 Previous: 3 Significant change in size (>/= 20% in 2 dimensions and minimal increase of 2 mm or 50% or greater increase in volume): Change in features: Change in ACR TI-RADS risk category: 5. Location: Right inferior. Size: 0.7 x 0.5 x 0.8 cm, volume 0.15 mL. Previously: 0.7 x 0.3 x 0.6 cm, volume 0.07 mL. Nodule characteristics: Composition: Solid (2). Echogenicity: Hypoechoic (2). Shape: Not taller than wide (0). Margins: Smooth (0). Echogenic Foci: None (0). ACR TI-RADS total points: 4 Previous: 4 ACR TI-RADS category: 4 Previous: 4 Significant change in size (>/= 20% in 2 dimensions and minimal increase of 2 mm or 50% or greater increase in volume): Change in features: Change in ACR TI-RADS risk category: NODES: No lymphadenopathy is seen in the tissue surrounding the thyroid gland. US/US thyroid IMPRESSION: ACR BI-RADS 2. [facility] Social History Housing: House Alcohol intake: current Alcohol intake frequency: holidays/special occasions only Alcohol type: wine Patient Tobacco Use Status: Never used Tobacco e-Cigarette/Vaping Use: Never Used service: No Current occupational status: disabled Cognitive needs: No Hearing needs: No Vision needs: No Assessment & Plan Assessment & Plan (1) Multiple thyroid nodules: Code(s): E04.2 - Nontoxic multinodular goiter Category: Medical Plan: 64-year-old female with no family history of thyroid cancer, with no personal history of head or neck radiation who is status post left lobectomy 15 years ago with benign pathology, who has multiple right-sided thyroid nodules with a dominant 2.6 cm right lobe nodule. She had biopsy of this nodule 08/27/2023 which came back as benign cytology ([place] category 2). However most recent ultrasound done in July 2024 showed increase in the size of the nodule from 2.3 cm in maximum dimension to 2.6 cm. There is also reported change in features of the nodule which now appears more irregular/lobulated. It has punctate echogenic foci. Given change in size of the nodule with change in characteristics appearing more lobulated/with possible extrathyroidal extension posteriorly, I will schedule her for repeat biopsy. I explained that it is common to have thyroid nodules. About 95% of the time these nodules are benign. However if the nodule is > 1 cm in size or suspicious on ultrasound then a fine need aspiration biopsy is recommended. We discussed that a FNAB involves 4-5 passes with a small gauge needle and material obtained is sent off for cytology.If the cytopathology is benign then the nodule will be followed annually with repeat ultrasounds. However if it is suspicious or malignant, we will need to discuss further management. Indeterminate cytology can be further investigated with repeat FNA, genetic testing or empiric lobectomy. Malignant cytology is managed with either lobectomy or total thyroidectomy. We discussed briefly that thyroid cancer is, in most patients, an indolent disease that does not affect mortality. We will arrange for FNA of the right mid 2.6 cm thyroid nodule at next available opening and patient will follow up with me in clinic thereafter for results and further decision making. Plan: -ordered TSH, free T4 -schedule FNA of the right mid 2.6 cm thyroid nodule and a follow up 1-2 weeks after to discuss results Plan I spent 45 minutes in reviewing the record, seeing the patient and documenting in the medical record. Orders: Orders 2 Thyroid Stimulating Hormone Today E04.2 - Nontoxic multinodular goiter Free T4 (Free Thyroxine) Today E04.2 - Nontoxic multinodular goiter US biopsy thyroid Today E04.2 - Nontoxic multinodular goiter Patient Instructions: Pls do thyroid blood work We will book you for a biopsy and a follow up 1-2 weeks after to discuss results Coding Level of Care Code New Pt Level 4 (71237) Diagnoses Multiple thyroid nodules E04.2 Time Spent (min) 45
[2024-08-28 12:34] VITALS: BP 160/100; PULSE 58; BMI 27.5
== END 2024-08-28 13:30 | disposition home or self-care (01) ==
LOC: HO.ENCR 12:20
PROVIDERS: PCP Physician Assistant; Visit Provider Student in an Organized Health Care Education/Training Program
DX: E04.2 Nontoxic multinodular goiter (principal)
CPT/HCPCS: 99204

== ENCOUNTER 2024-09-17 10:19 | Outpatient (REF) | payer OTHER, SELFPAY ==
--- NOTE | 2024-09-17 11:22 | PM.PROC ---
Brief Operative Note Date of procedure: 09/17/24 Pre-op diagnosis: right mid 2.6 cm thyroid nodule FNA biopsy Post-op diagnosis: same Procedure: THYROID FINE NEEDLE ASPIRATION PROCEDURE NOTE ? PROCEDURE PERFORMED: Ultrasound-guided FNA of thyroid nodule ? OPERATORS: ? INDICATION: right mid 2.6 cm thyroid nodule ; FNA performed to assess for malignancy ? DESCRIPTION OF PROCEDURE: The indications for FNA (to assess for malignancy) were reviewed with the patient in detail. Potential complications (e.g., bleeding, infection, damage to local structures, absence of clear diagnosis after FNA) were reviewed. Alternatives to FNA including conservative observation or surgery were described. The patient understood and agreed to proceed. This was documented by the signing of the written informed consent form. A time-out was performed to confirm the patient's identity and the site of planned FNA. The nodule of interest was identified using ultrasound (14 MHz linear array probe). The site of FNA was then draped in the usual fashion and carefully cleaned and prepared using alcohol swabs. The skin at the previously-identified site of needle insertion was iced and sprayed with numbing spray. Under ultrasound guidance, _4_ passes were performed using a 1.5-inch, 25-gauge needle, and sample was obtained via capillary action. The needle tip was clearly visualized to be within the nodule at the time of sampling for 4__ of _4_ passes The patient tolerated the procedure well. There were no immediate complications. A small adhesive bandage was applied, and the patient was advised to take acetaminophen (rather than NSAIDs) for any discomfort and to report any signs of inflammation/infection or marked swelling. IMPRESSION: Technically successful ultrasound-guided fine needle aspiration of right mid 2.6 cm thyroid nodule. PLAN: The patient was advised that I will provide follow-up regarding the cytology result and any subsequent plans. Ivone Ardon MD Endocrinology Attending Condition: stable Disposition: same day
== END 2024-09-17 10:20 | disposition home or self-care (01) ==
LOC: HO.US 10:19
PROVIDERS: PCP Physician Assistant; Visit Provider Student in an Organized Health Care Education/Training Program
DX: E04.2 Nontoxic multinodular goiter (principal)
CPT/HCPCS: 10005; 88173; 88305

== ENCOUNTER → 2024-09-17 10:19 | Outpatient (BNV) | payer OTHER, SELFPAY | PROVIDERS: PCP Physician Assistant; Visit Provider Student in an Organized Health Care Education/Training Program | DX: E04.2 Nontoxic multinodular goiter (principal) | CPT/HCPCS: 10005 ==

== ENCOUNTER 2024-10-01 12:27 | Outpatient (AMB) | payer OTHER, SELFPAY ==
--- NOTE | 2024-10-01 12:52 | MHC.OFFVIS ---
Vital Signs 10/01/24 13:00 Height 5 ft 6 in Weight 176 lb 2.389 oz BMI 28.4 BP 146/96 H Blood Pressure Location Lt brachial Position Sitting Pulse 73 Pulse Source Pulse Oximeter Intake Visit Reasons: Biopsy f/u Intake Note: Patient present today for biopsy results. 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 HPI from prior visit S/ P left lobectomy either at [facility] or [facility] 15 years ago for thyroid nodules which per patient were biopsied and they couldnt find much in it , per patient pathology post surgery was benign. Dr. Nasrin Morley was her prior peripatologist. I dono t have these records at this time. Thyroid ultrasound from 08/06/2023 showed a dominant right inferior 2.3 cm nodule, solid, isoechoic punctate echogenic foci. Other subcentimeter nodules noted. Patient underwent FNA of the right 2.3 cm dominant nodule on 08/27/2023 which came back benign ([place] category 2). Most recent thyroid ultrasound done on 08/05/2024 (I reviewed the images myself) again showed multiple subcentimeter right-sided lymph nodes in her right dominant mid lobe 2.6 cm nodule which has increased in size to 2.1 X 2.6 X 2.1 cm from previous size of 2.3 X 1.9 X 2 cm. Volume from 4.5 mL to 6 ml. The nodule is, solid, hyperechoic, taller than wide, with irregular margins. No recent TFTs in the system. Interval history 09/17/2024 underwent FNA of the right mid/inferior 2.6 cm nodule which came back as AUS ([place] category 3) with microfollicles without nuclear atypia, Afirma pending. She is here today to discuss these results. Patient currently denies heat or cold intolerance, diarrhea or constipation, weight changes, mood changes, low energy, changes in appearance of eyes or vision changes, tremors, increased diaphoresis or dry skin. ? Reports intermittent palpitations. She reports excessive anxiety. Reports hair loss. She does describe some degree of difficulty swallowing, no changes in her voice. She does express some tenderness and pressure. Patient denies any history of childhood neck radiation. Denies having ever used lithium, amiodarone or biotin supplements. Patient denies any family history of thyroid cancer or thyroid disease. Patient doesnt know her family medical history. Quit smoking 36 years ago. Review of systems Constitutional: no fevers, chills or weight loss HEENT: no changes in vision Cardiac: No chest pain, discomfort Pulmonary: No SOB GI:No abdominal pain, no nausea or vomiting, no anorexia, no blood in stool : no burning micturition, dysuria or increase in urinary frequency Physical exam General: sitting comfortably in no acute distress HEENT: normocephalic/atraumatic, moist oral mucosa Neck: supple, palpable 2 cm right-sided thyroid nodule, firm Cardiac: normal heart sounds Pulm: normal breath sounds B/L, no added breath sounds Abd: not distended, no tenderness Extremities: no edema, no signs of myxedema Neuro: AAO x3, Speech: normal, no facial droop, moving all 4 extremities Labs Laboratory Tests 08/28/24 13:56 TSH 1.26 Free T4 1.30 Imaging US THYROID 08/05/2024 CLINICAL INFORMATION: Nontoxic multinodular goiter. COMPARISON: Ultrasound-guided thyroid biopsy dated 08/27/2023. Ultrasound soft tissue head/neck thyroid dated 08/06/2023. TECHNIQUE: Linear transducer grayscale and color Doppler examination with attention to the region of the thyroid. FINDINGS: Submitted for interpretation on August 25, 2024. SIZE: Measurements of the solitary right thyroid lobe and nodules are given in sagittal, anteroposterior and transverse dimensions respectively. Right Thyroid Lobe: 6.4 x 2.3 x 2.1 cm, volume 15.7 mL. Previously 5.8 x 2.4 x 2.8 cm, volume 20.4 mL. Parenchyma: The gland echotexture is homogeneous. Thyroid vascularity is normal. Left Thyroid Lobe: Surgically absent. Isthmus: 0.5 cm in maximum AP dimension. Previously 0.5 cm. Estimated total number of nodules greater than or equal to 1 cm: 1. 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 Location: Right superior. Size: 0.4 x 0.2 x 0.2 cm, volume 0.009 mL. Previously: 0.4 x 0.3 x 0.4 cm, volume 0.03 mL. Nodule characteristics: Composition: Solid (2). Echogenicity: Isoechoic (1). Shape: Not taller than wide (0). Margins: Smooth (0). Echogenic Foci: None (0). ACR TI-RADS total points: 3 Previous: 3 ACR TI-RADS category: 3 Previous: 3 Significant change in size (>/= 20% in 2 dimensions and minimal increase of 2 mm or 50% or greater increase in volume): Change in features: Change in ACR TI-RADS risk category: 2. Location: Right superior. Size: 0.3 x 0.2 x 0.4 cm, volume 0.015 mL. Previously: New since the previous study. Nodule characteristics: Composition: Cystic(0). ACR TI-RADS total points: 0 ACR TI-RADS category: 1 3. Location: Right mid. Size: 2.1 x 2.6 x 2.1 cm, volume 6.0 mL. Previously: 2.3 x 1.9 x 2.0 cm, volume 4.5 mL. Nodule characteristics: Composition: Solid (2). Echogenicity: Hyperechoic (1). Shape: Taller than wide (3). Margins: Irregular (2). Echogenic Foci: None (0). ACR TI-RADS total points: 8 Previous: 6 ACR TI-RADS category: 5 Previous: 4 Significant change in size (>/= 20% in 2 dimensions and minimal increase of 2 mm or 50% or greater increase in volume): Change in features: Change in ACR TI-RADS risk category: 4. Location: Right inferior. Size: 0.7 x 0.4 x 0.6 cm, volume 0.1 mL. Previously: 0.6 x 0.4 x 0.6 cm, volume 0.08 mL. Nodule characteristics: Composition: Solid (2). Echogenicity: Hypoechoic (2). Shape: Not taller than wide (0). Margins: Smooth (0). Echogenic Foci: None (0). ACR TI-RADS total points: 4 Previous: 3 ACR TI-RADS category: 4 Previous: 3 Significant change in size (>/= 20% in 2 dimensions and minimal increase of 2 mm or 50% or greater increase in volume): Change in features: Change in ACR TI-RADS risk category: 5. Location: Right inferior. Size: 0.7 x 0.5 x 0.8 cm, volume 0.15 mL. Previously: 0.7 x 0.3 x 0.6 cm, volume 0.07 mL. Nodule characteristics: Composition: Solid (2). Echogenicity: Hypoechoic (2). Shape: Not taller than wide (0). Margins: Smooth (0). Echogenic Foci: None (0). ACR TI-RADS total points: 4 Previous: 4 ACR TI-RADS category: 4 Previous: 4 Significant change in size (>/= 20% in 2 dimensions and minimal increase of 2 mm or 50% or greater increase in volume): Change in features: Change in ACR TI-RADS risk category: NODES: No lymphadenopathy is seen in the tissue surrounding the thyroid gland. US/US thyroid IMPRESSION: ACR BI-RADS 2. [facility] Social History Housing: House Alcohol intake: current Alcohol intake frequency: holidays/special occasions only Alcohol type: wine Patient Tobacco Use Status: Never used Tobacco e-Cigarette/Vaping Use: Never Used service: No Current occupational status: disabled Cognitive needs: No Hearing needs: No Vision needs: No Assessment & Plan Assessment & Plan (1) Multiple thyroid nodules: Code(s): E04.2 - Nontoxic multinodular goiter Category: Medical Plan: 64-year-old female with no family history of thyroid cancer, with no personal history of head or neck radiation who is status post left lobectomy 15 years ago with benign pathology, who has multiple right-sided thyroid nodules with a dominant 2.6 cm right lobe nodule. She had biopsy of this nodule 08/27/2023 which came back as benign cytology ([place] category 2). However most recent ultrasound done in July 2024 showed increase in the size of the nodule from 2.3 cm in maximum dimension to 2.6 cm. There is also reported change in features of the nodule which now appears more irregular/lobulated. It has punctate echogenic foci. Given change in size of the nodule with change in characteristics appearing more lobulated/with possible extrathyroidal extension posteriorly, we proceeded with repeat FNA..09/17/2024 underwent FNA of the right mid/inferior 2.6 cm nodule which came back as AUS ([place] category 3) with microfollicles without nuclear atypia, Afirma pending. TSH normal from August 2024. I explained to the patient that AUS results mean a 6-18% chance of malignancy in the cancer, patient expressed a lot of anxiety and stress about this. situation of waiting for the results. I reassured her that there is an 82-94% chance that this nodules benign based on the population statistics. Reassured her that there is not much to do till we have the results. For now we will book her for an appointment in 2 weeks to discuss results especially as she expresses a lot of stress about it, however if Afirma is benign, we will plan to repeat ultrasound in 12 months with a 1 year follow up. Plan see above Coding Level of Care Code Est Pt Level 3 (58328) Diagnoses Multiple thyroid nodules E04.2
[2024-10-01 13:00] VITALS: BP 146/96; PULSE 73; BMI 28.4
--- OUTSIDE RECORDS SUMMARY | 2024-10-02 02:04 | XMS_ITS ---
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 Name Role Phone Opal Ying Unavailable [phone] ALLERGIES, ADVERSE REACTIONS, ALERTS Substance Code Code System Type Reaction Severity Status Start Date End Date Neosporin ([id number]) 676893 RxNorm Drug allergy () 0 codeine 2670 RxNorm Drug allergy () 0 MEDICATIONS Medication Code Code System Start Date Stop Date Route Dosage Directions Fill Instructions prednisone 390947 RxNorm 03/03/2024 oral 1 clonazepam RxNorm 3 1 PROBLEMS Problem Name Code Code System Start Date End Date Stat us Anxiety disorder, unspecified 41914693 [facility]omed[facility] Active Strain of muscle and tendon of back wall of thorax, initial encounter 66760366 [facility] 03/03/2024 Active ENCOUNTERS Encounter Diagnosis Code Code System Date Stat us Strain of muscle and tendon of back wall of thorax, initial encounter 40272344 [facility] 03/03/2024 Active IMMUNIZATIONS * None VITAL SIGNS Code Code System Vitals Name Date Value and Un its 8462-4 [facility] Blood Pressure-Diastolic 03/03/2024 96 mmHg 8480-6 [facility] Blood Pressure-Systolic 03/03/2024 1 80 mmHg 8867-4 [facility] Heart Rate 03/03/2024 84 /min 9279-1 [facility] Respiratory Rate 03/03/2024 16 /min 8310-5 [facility] Body Temperature 03/03/2024 98.6 F 27900-4 [facility] Oxygen Saturation 03/03/2024 98 % SOCIAL HISTORY * None PROCEDURES * None MEDICAL EQUIPMENT * Patient has no history of implantable devices ASSESSMENT * None TREATMENT PLAN Type Description Date MEDICATION Take 03/03/2024 ORDERS As discussed, follow -up with your primary care for referral for physical therapy if symptoms do not improve after taking the prednisone. 03/03/2024 APPOINTMENT If not feeling jonas r in 3 day(s), please see your primary care physician. If you do not have a primary care physician, please return to this clinic. 03/03/2024 Lab Tests None GOALS * None HEALTH CONCERNS * No Health Concerns FUNCTIONAL AND COGNITIVE STATUS * None CONSULTATION NOTES * None DISCHARGE SUMMARY NOTES * None HISTORY AND PHYSICAL NOTES * None IMAGING NOTES * /[place] History: Back pain: The patient presents with a chief complaint of back pain since Feb 19, 2024.SPINE, THORACIC, 2 VIEWS FINDINGS:Imaging evaluation is degraded secondary to technique.No focal area of soft tissue swelling is appreciable.No acute fracture or subluxation is evident on provided vi ews.Multilevel thoracic spondylosis. No radiodense foreign bodies are identified.IMPRESSION:Allowing for technical limitations, no acute osseous abnormality. LABORATORY REPORT NARRATIVE NOTES * None PATHOLOGY REPORT NARRATIVE NOTES * None PROGRESS NOTES * None
== END 2024-10-01 13:30 | disposition home or self-care (01) ==
PROVIDERS: PCP Physician Assistant; Visit Provider Student in an Organized Health Care Education/Training Program
DX: E04.2 Nontoxic multinodular goiter (principal)
CPT/HCPCS: 99213

== ENCOUNTER → 2024-10-01 12:27 | Outpatient (BNVA) | payer OTHER, SELFPAY | PROVIDERS: PCP Physician Assistant; Visit Provider Student in an Organized Health Care Education/Training Program | DX: E04.2 Nontoxic multinodular goiter (principal) | CPT/HCPCS: 99212 ==

== ENCOUNTER 2024-10-16 12:19 | Outpatient (AMB) | payer OTHER, SELFPAY ==
--- NOTE | 2024-10-16 12:27 | MHC.OFFVIS ---
Vital Signs 10/16/24 12:28 Height 5 ft 6 in Weight 177 lb 4.026 oz BMI 28.6 BP 146/92 H Blood Pressure Location Lt brachial Position Sitting Pulse 76 Pulse Source Pulse Oximeter Intake Visit Reasons: NMG Intake Note: Patient present today for NMG office visit. 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 HPI from prior visit S/ P left lobectomy either at [facility] or [facility] 15 years ago for thyroid nodules which per patient were biopsied and they couldnt find much in it , per patient pathology post surgery was benign. 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 I dono t have these records at this time. Thyroid ultrasound from 08/06/2023 showed a dominant right inferior 2.3 cm nodule, solid, isoechoic punctate echogenic foci. Other subcentimeter nodules noted. Patient underwent FNA of the right 2.3 cm dominant nodule on 08/27/2023 which came back benign ([place] category 2). Most recent thyroid ultrasound done on 08/05/2024 (I reviewed the images myself) again showed multiple subcentimeter right-sided lymph nodes in her right dominant mid lobe 2.6 cm nodule which has increased in size to 2.1 X 2.6 X 2.1 cm from previous size of 2.3 X 1.9 X 2 cm. Volume from 4.5 mL to 6 ml. The nodule is, solid, hyperechoic, taller than wide, with irregular margins. No recent TFTs in the system. Interval history 09/17/2024 underwent FNA of the right mid/inferior 2.6 cm nodule which came back as AUS ([place] category 3) with microfollicles without nuclear atypia, Afirma DICER1 mutation. She is here today to discuss these results. Patient currently denies heat or cold intolerance, diarrhea or constipation, weight changes, mood changes, low energy, changes in appearance of eyes or vision changes, tremors, increased diaphoresis or dry skin. ? Reports intermittent palpitations. She reports excessive anxiety. Reports hair loss. She does describe some degree of difficulty swallowing, no changes in her voice. She does express some tenderness and pressure. Patient denies any history of childhood neck radiation. Denies having ever used lithium, amiodarone or biotin supplements. Patient denies any family history of thyroid cancer or thyroid disease. Patient doesnt know her family medical history. Quit smoking 36 years ago. Review of systems Constitutional: no fevers, chills or weight loss HEENT: no changes in vision Cardiac: No chest pain, discomfort Pulmonary: No SOB GI:No abdominal pain, no nausea or vomiting, no anorexia, no blood in stool : no burning micturition, dysuria or increase in urinary frequency Physical exam General: sitting comfortably in no acute distress HEENT: normocephalic/atraumatic, moist oral mucosa Neck: supple, palpable 2 cm right-sided thyroid nodule, firm Cardiac: normal heart sounds Pulm: normal breath sounds B/L, no added breath sounds Abd: not distended, no tenderness Extremities: no edema, no signs of myxedema Neuro: AAO x3, Speech: normal, no facial droop, moving all 4 extremities Labs Laboratory Tests 08/28/24 13:56 TSH 1.26 Free T4 1.30 Imaging US THYROID 08/05/2024 CLINICAL INFORMATION: Nontoxic multinodular goiter. COMPARISON: Ultrasound-guided thyroid biopsy dated 08/27/2023. Ultrasound soft tissue head/neck thyroid dated 08/06/2023. TECHNIQUE: Linear transducer grayscale and color Doppler examination with attention to the region of the thyroid. FINDINGS: Submitted for interpretation on August 25, 2024. SIZE: Measurements of the solitary right thyroid lobe and nodules are given in sagittal, anteroposterior and transverse dimensions respectively. Right Thyroid Lobe: 6.4 x 2.3 x 2.1 cm, volume 15.7 mL. Previously 5.8 x 2.4 x 2.8 cm, volume 20.4 mL. Parenchyma: The gland echotexture is homogeneous. Thyroid vascularity is normal. Left Thyroid Lobe: Surgically absent. Isthmus: 0.5 cm in maximum AP dimension. Previously 0.5 cm. Estimated total number of nodules greater than or equal to 1 cm: 1. 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 Location: Right superior. Size: 0.4 x 0.2 x 0.2 cm, volume 0.009 mL. Previously: 0.4 x 0.3 x 0.4 cm, volume 0.03 mL. Nodule characteristics: Composition: Solid (2). Echogenicity: Isoechoic (1). Shape: Not taller than wide (0). Margins: Smooth (0). Echogenic Foci: None (0). ACR TI-RADS total points: 3 Previous: 3 ACR TI-RADS category: 3 Previous: 3 Significant change in size (>/= 20% in 2 dimensions and minimal increase of 2 mm or 50% or greater increase in volume): Change in features: Change in ACR TI-RADS risk category: 2. Location: Right superior. Size: 0.3 x 0.2 x 0.4 cm, volume 0.015 mL. Previously: New since the previous study. Nodule characteristics: Composition: Cystic(0). ACR TI-RADS total points: 0 ACR TI-RADS category: 1 3. Location: Right mid. Size: 2.1 x 2.6 x 2.1 cm, volume 6.0 mL. Previously: 2.3 x 1.9 x 2.0 cm, volume 4.5 mL. Nodule characteristics: Composition: Solid (2). Echogenicity: Hyperechoic (1). Shape: Taller than wide (3). Margins: Irregular (2). Echogenic Foci: None (0). ACR TI-RADS total points: 8 Previous: 6 ACR TI-RADS category: 5 Previous: 4 Significant change in size (>/= 20% in 2 dimensions and minimal increase of 2 mm or 50% or greater increase in volume): Change in features: Change in ACR TI-RADS risk category: 4. Location: Right inferior. Size: 0.7 x 0.4 x 0.6 cm, volume 0.1 mL. Previously: 0.6 x 0.4 x 0.6 cm, volume 0.08 mL. Nodule characteristics: Composition: Solid (2). Echogenicity: Hypoechoic (2). Shape: Not taller than wide (0). Margins: Smooth (0). Echogenic Foci: None (0). ACR TI-RADS total points: 4 Previous: 3 ACR TI-RADS category: 4 Previous: 3 Significant change in size (>/= 20% in 2 dimensions and minimal increase of 2 mm or 50% or greater increase in volume): Change in features: Change in ACR TI-RADS risk category: 5. Location: Right inferior. Size: 0.7 x 0.5 x 0.8 cm, volume 0.15 mL. Previously: 0.7 x 0.3 x 0.6 cm, volume 0.07 mL. Nodule characteristics: Composition: Solid (2). Echogenicity: Hypoechoic (2). Shape: Not taller than wide (0). Margins: Smooth (0). Echogenic Foci: None (0). ACR TI-RADS total points: 4 Previous: 4 ACR TI-RADS category: 4 Previous: 4 Significant change in size (>/= 20% in 2 dimensions and minimal increase of 2 mm or 50% or greater increase in volume): Change in features: Change in ACR TI-RADS risk category: NODES: No lymphadenopathy is seen in the tissue surrounding the thyroid gland. US/US thyroid IMPRESSION: ACR BI-RADS 2. 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 gene Social History Housing: House Alcohol intake: current Alcohol intake frequency: holidays/special occasions only Alcohol type: wine Patient Tobacco Use Status: Never used Tobacco e-Cigarette/Vaping Use: Never Used service: No Current occupational status: disabled Cognitive needs: No Hearing needs: No Vision needs: No Physical Exam Vital Signs: Last Vital Signs Pulse 76 10/16/24 12:28 BP 146/92 H 10/16/24 12:28 BMI result Body Mass Index 28.6 Assessment & Plan Assessment & Plan (1) Multiple thyroid nodules: Code(s): E04.2 - Nontoxic multinodular goiter Category: Medical Plan: 64-year-old female with no family history of thyroid cancer, with no personal history of head or neck radiation who is status post left lobectomy 15 years ago with benign pathology, who has multiple right-sided thyroid nodules with a dominant 2.6 cm right lobe nodule. She had biopsy of this nodule 08/27/2023 which came back as benign cytology ([place] category 2). However most recent ultrasound done in July 2024 showed increase in the size of the nodule from 2.3 cm in maximum dimension to 2.6 cm. There is also reported change in features of the nodule which now appears more irregular/lobulated. It has punctate echogenic foci. Given change in size of the nodule with change in characteristics appearing more lobulated/with possible extrathyroidal extension posteriorly, we proceeded with repeat FNA..09/17/2024 underwent FNA of the right mid/inferior 2.6 cm nodule which came back as AUS ([place] category 3) with microfollicles without nuclear atypia, Afirma showed DICER 1 mutation ( 50 % risk of malignancy). I explained to the patient that DICER1 mutation is associated with both benign and malignant tumors. At this point given 50% risk of malignancy, we will refer her to Dr. Ever Trinh at [facility] for completion right thyroidectomy. TSH normal from August 2024. Discussed with patient need for lifelong levothyroxine hormone replacement therapy after surgery. I explained to the patient that this mutation is associated most commonly with certain types of tumors that occur in the lungs, kidneys,?ovaries, and?thyroid?. Affected individuals can develop one or more types of tumors, and members of the same family can have different types. However, the risk of tumor formation in individuals with?DICER1?syndrome is only moderately increased compared with tumor risk in the general population; most individuals with genetic changes associated with this condition never develop tumors. It is important to note that people inherit an increased risk of tumors; many people who have mutations in the?DICER1?gene do not develop abnormal growths. However it is important for her to get evaluated by Genetics team. We will refer her to [facility] genetics. Patient did get very anxious at the idea of hearing that they have a 6-9 month bedtime, however she can not travel to [place]. She has a lot of anxiousness regarding her diagnosis. Plan: -referral to [facility] genetics placed -referral to Dr. 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
[2024-10-16 12:28] VITALS: BP 146/92; PULSE 76; BMI 28.6
== END 2024-10-16 13:37 | disposition home or self-care (01) ==
PROVIDERS: PCP Physician Assistant; Visit Provider Student in an Organized Health Care Education/Training Program
DX: E04.2 Nontoxic multinodular goiter (principal)
CPT/HCPCS: 99214

== ENCOUNTER → 2024-10-16 12:19 | Outpatient (BNVA) | payer OTHER, SELFPAY | PROVIDERS: PCP Physician Assistant; Visit Provider Student in an Organized Health Care Education/Training Program | DX: E04.2 Nontoxic multinodular goiter (principal) | CPT/HCPCS: 99212 ==

== ENCOUNTER 2025-04-15 13:13 | Outpatient (AMB) | payer OTHER, SELFPAY ==
--- NOTE | 2025-04-15 13:31 | MHC.PC.OV ---
Vital Signs 04/15/25 13:42 04/15/25 14:13 Height 5 ft 6 in Weight 159 lb 2 oz BMI 25.7 BP 140/90 H 155/90 H Blood Pressure Location Lt brachial Position Sitting Pulse 60 Pulse Source Pulse Oximeter Temp 97.3 F Pulse Oximetry (%) 98 Oxygen Delivery Method Room Air Intake Visit Reasons: Annual exam Allergies losartan Adverse Reaction (Intermediate, Verified 10/01/24 16:43) GI upset Codeine Sulfate Allergy (Unknown, Uncoded 10/01/24 13:02) Agitated Neosporin Allergy (Unknown, Uncoded 10/01/24 13:02) Hives Medication List - Last Reconciled 04/15/25 by Kaz Gillette PA-C clonazepam 1 mg PO BID PRN clotrimazole-betamethasone 1-0.05 % 1 appl topical BID 30 days levothyroxine 112 mcg PO DAILY lisinopril 10 mg PO DAILY Tobacco use date assessed: 04/09/24 Dental Screening Dental Screen Date: 04/09/24 HPI Annual exam HPI Details Patient is a 64-year-old female here today for annual physical. Patient has a past medical history significant for hypertension, generalized anxiety disorder .. Hypertension: Patient continues on lisinopril 10 mg, up today's blood pressure in office elevated. We did discuss increasing lisinopril dose or adding on hydrochlorothiazide though she declines at this time. She would like to work on lifestyle and dietary modification to help control her blood pressure. .. Generalized anxiety disorder: She continues to follow psychiatrist whom manages her mental health medication. Was on SSRI therapy in the past though felt to was not effective for her. She does use clonazepam on a daily basis at this time. She does report her living situation is not the past and causes her more anxiety. . Borderline high total cholesterol: Most recent labs showing borderline high cholesterol, will work on lifestyle and dietary modifications . History left thyroidectomy: Patient has a history of a left hemithyroidectomy in recently was found to have an enlarging 2.6 cm right thyroid nodule which FNA revealed suspicious pathology. She underwent a right thyroid lobe removal recently at [facility]. 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 45107 - PHQ-9 Billing: Patient declined-do not bill Source: Developed by Drs. Yash Tierney, Sailaja Huang, Lee Diggs and colleagues, with an educational nara from [employer]. Thrive Questionnaire Date Thrive assessed: 04/15/25 I am a: Patient What is your living situation today?: I have a steady place to live Within the past 12 months, did the food you bought not last and you didn't have the money to get more?: Never true Within the past 12 months, did you worry whether your food would run out before you got money to buy more?: Never true Do you have trouble paying for medicines?: No Do you have trouble getting transportation to medical appointments?: No Do you have trouble paying your heating and electricity bill?: No Do you have trouble taking care of your child, family member or friend?: No Do you have trouble with day-to-day activities such as bathing, preparing meals, shopping, managing finances, etc.?: No Are you currently unemployed and looking for a job?: No Are you interested in more education?: No Please select the resources that you would like help with: None Currently or been in a relationship where the following occur: No concerns reported THRIVE Score: 0 AUDIT C Alcohol Use Questionnaire (AUDIT-C) 1. How often do you have a drink containing alcohol?: Monthly or less 2. How many drinks containing alcohol do you have on a typical day when you are drinking?: 1 or 2 3. How often do you have six or more drinks on one occasion?: Never Total Score: 1 Score Reviewed/Action Taken: No GEORGE-7 AMB Questionnaire GEORGE-7 Date GEORGE - 7 assessed: 04/15/25 (Pt decline) Source: Developed by Drs. Yash Tierney, Sailaja Huang, Lee Diggs and colleagues, with an educational nara from [employer]. GEORGE-7 Assessment Billing GEORGE-7 Assessment Tool: GEORGE-7 Assessment 88822 Review of Systems Const Denies body aches, Denies chills, Denies excessive sweating, Denies fatigue, Denies fever(s) and Denies headache(s) Eyes Denies blurry vision ENT Denies dysphagia, Denies vertigo, Denies dizziness, Denies headache(s), Denies hearing loss and Denies tinnitus Card Denies chest pain, Denies chest pain with activity, Denies syncope, Denies irregular heart rhythm and Denies dyspnea Resp Denies chest congestion, Denies cough, Denies hemoptysis, Denies dyspnea and Denies wheezing GI Denies abdominal pain, Denies melena, Denies hematochezia, Denies coffee ground emesis, Denies dysphagia, Denies diarrhea, Denies nausea and Denies vomiting Denies urinary frequency, Denies dysuria, Denies urinary hesitancy and Denies urinary urgency Musc Denies arthralgias, Denies limited range of motion, Denies muscle cramps and Denies muscle weakness Skin/Breast Denies rash and Denies skin ulcer Neuro Denies Abnormal speech present, Denies confusion, Denies vertigo, Denies dizziness, Denies syncope, Denies headache(s), Denies memory loss and Denies seizure-like activity Psych Denies anxiety, Denies confusion, Denies depression, Denies memory loss, Denies panic attacks and Denies paranoia Endo Denies excessive sweating, Denies fatigue, Denies flushing, Denies polydipsia and Denies polyuria Aller/Immun Denies wheezing Physical exam (Primary Care) Vital Signs: Last Vital Signs Temp 97.3 F 04/15/25 13:42 Pulse 60 04/15/25 13:42 BP 155/90 H 04/15/25 14:13 Pulse Ox 98 04/15/25 13:42 Oxygen Delivery Method Room Air 04/15/25 13:42 Care Plan Goal for BP management: Continue lisinopril 10 mg, consider adding hydrochlorothiazide for better blood pressure control. Next steps: Patient will work on lifestyle and dietary modifications to reduce her blood pressure is well. BMI result Body Mass Index 25.7 Tobacco/Smoking Status: Tobacco use Status Tobacco use date assessed 04/09/24 04/15/25 13:35 Patient Tobacco Use Status Never used Tobacco 04/15/25 14:03 e-Cigarette/Vaping Use Never Used 04/15/25 14:03 Thrive Assessment: Date of Thrive Assessment Date Thrive assessed 04/15/25 04/15/25 13:49 Currently or been in a relationship where the following occur: No concerns reported Const General: cooperative, comfortable, no acute distress, alert and awake; No confusion Orientation/consciousness: oriented to person, oriented to place, patient oriented x3 and No confusion HENMT Head: Yes normocephalic Ears: external ears normal and TM's normal bilaterally Face and sinus: No sinus tenderness Mouth: Normal oral and palatal mucosa present and tongue normal Teeth and gingiva: dentition normal and gingiva normal Throat: Yes posterior oropharynx normal, Yes tonsils normal and Yes uvula midline Eyes Conjunctivae: conjunctivae normal Sclerae: sclerae normal Pupils: Equal, round and reactive pupils present EOM: EOMs intact bilaterally Direct Ophthalmoscopy: No no photophobia Neck Neck: Yes no lymphadenopathy, No tender and Yes no JVD Thyroid: Thyroid normal Carotids: no bruits Chest Chest palpation & inspection: no tenderness Resp Effort & Inspection: normal respiratory effort, no audible wheezes, not labored and no stridor Auscultation: no crackles, no rales, no rhonchi and no wheezes Cardio Jugular venous distension: no JVD Rate: regular rate, not bradycardic and not tachycardic Rhythm: regular rhythm Bruits: no carotid bruits Peripheral pulses: Peripheral pulses 2+ throughout GI Inspection: Yes normal to inspection, No abdominal wall ecchymosis and No visible herniation Palpation (GI): Soft to palpation, nontender, no guarding, not rigid and No hepatosplenomegaly present Auscultation: normoactive bowel sounds General: Yes no CVA tenderness Back/Spine/Pelvis Back: no CVA tenderness and No back tenderness Cervical Spine: cervical ROM normal Thoracic/Lumbar Spine: thoracic and lumbar spine normal to inspection, straight leg raise negative bilaterally, No thoraco-lumbar ROM limited and No lumbar spinal tenderness Skin Lesions: no lesions Rashes: no rashes Wounds: no wounds Neuro General: oriented to person, oriented to place, patient oriented x3, CN's II-XI intact bilaterally and No confusion Cranial nerves: Yes Equal, round and reactive pupils present and Yes Normal accommodation reflex present Cognition (Neuro): normal cognition Speech: No Abnormal speech present Gait exam (Neuro): Normal gait present Motor exam (neuro): 5/5 motor strength present throughout Extrem Right upper extremity: full ROM; no cyanosis Left upper extremity: full ROM; no cyanosis Right lower extremity: no edema Left lower extremity: no edema Psych Appearance: grossly normal Mental Status: mental status grossly normal Affect: normal affect Attitude: cooperative Thought process: Normal thought process present Coding Level of Care Code Est Pt Prev Care >65y(18846) Diagnoses Annual physical exam Z00.00 Primary hypertension I10 Hypertension type: primary hypertension Acquired hypothyroidism E03.9 Hypothyroidism type: acquired Borderline high cholesterol E78.9 Additional Codes GEORGE-7 Assessment Billing - GEORGE-7 Assessment Tool: GEORGE-7 Assessment 74603 ([id number]) Assessment & Plan Assessment & Plan (1) Annual physical exam: Code(s): Z00.00 - Encounter for general adult medical examination without abnormal findings Category: Medical Plan: As per HPI (2) HTN (hypertension): Code(s): I10 - Essential (primary) hypertension Category: Medical Qualifiers: Hypertension type: primary hypertension Qualified Code(s): I10 - Essential (primary) hypertension Plan: Patient's blood pressure elevated today in office, continues on lisinopril 10 mg. Offered to restart hydrochlorothiazide which was offering better blood pressure control though she declines at this time. She would like to work on lifestyle and dietary modifications at this time. Goal blood pressures to be below 140/90 (3) Hypothyroid: Code(s): E03.9 - Hypothyroidism, unspecified Category: Medical Qualifiers: Hypothyroidism type: acquired Qualified Code(s): E03.9 - Hypothyroidism, unspecified Plan: Patient has been started on levothyroxine 112 mcg status post right lobe thyroidectomy. (4) Borderline high cholesterol: Code(s): E78.9 - Disorder of lipoprotein metabolism, unspecified Category: Medical Plan: Patient has a history of borderline high total cholesterol, will continue to follow lipid panel to ensure stable. Goal LDL to be below 130 Orders: Orders Complete Blood Count no Diff 04/15/25 I10 - Essential (primary) hypertension Comprehensive [place]. Panel Fast 04/15/25 I10 - Essential (primary) hypertension Microalbumin, Random (w Creat) 04/15/25 I10 - Essential (primary) hypertension Lipid Panel 04/15/25 E78.9 - Disorder of lipoprotein metabolism, unspecified Medications: Refilled lisinopril 10 mg PO DAILY 90 tabs 1RF I10 - Essential (primary) hypertension
[2025-04-15 13:42] VITALS: BP 140/90; PULSE 60; TEMP 36.3; O2SAT 98; BMI 25.7
[2025-04-15 14:13] VITALS: BP 155/90
--- OUTSIDE RECORDS SUMMARY | 2025-04-15 15:29 | XMS_ITS | Continuity of Care Document ---
Author Organization [facility] Address [address] [place] [address] Phone [phone] Social History Type Date Description Comments Sex Female Sex Unknown Medical Devices Description No Information Available Encounters Description No Information Available Assessments Description No Information Available Plan of Treatment No Information Available Functional Status Description No Information Available Mental Status Description No Information Available Referrals Description No Information Available
== END 2025-04-15 14:21 | disposition home or self-care (01) ==
LOC: HO.HMCH 13:14
PROVIDERS: PCP Physician Assistant; Visit Provider Physician Assistant
DX: Z00.00 Encounter for general adult medical examination without abnormal findings (principal); I10 Essential (primary) hypertension; E03.9 Hypothyroidism, unspecified; E78.9 Disorder of lipoprotein metabolism, unspecified

== ENCOUNTER → 2025-04-15 13:13 | Outpatient (BNVA) | payer OTHER, SELFPAY | PROVIDERS: PCP Physician Assistant; Visit Provider Physician Assistant | DX: Z00.00 Encounter for general adult medical examination without abnormal findings (principal); I10 Essential (primary) hypertension; F41.1 Generalized anxiety disorder; E03.9 Hypothyroidism, unspecified; E78.9 Disorder of lipoprotein metabolism, unspecified | CPT/HCPCS: 96127; 99397 ==

== ENCOUNTER 2025-05-12 08:13 | Outpatient (REF) | payer OTHER, SELFPAY ==
--- OUTSIDE RECORDS SUMMARY | 2025-05-12 08:18 | XMS_ITS | Continuity of Care Document ---
Author Organization [facility] Address [address] [place] [address] Phone [phone] Social History Type Date Description Comments Sex Female Sex Unknown Medical Devices Description No Information Available Encounters Description No Information Available Assessments Description No Information Available Plan of Treatment No Information Available Functional Status Description No Information Available Mental Status Description No Information Available Referrals Description No Information Available
--- OUTSIDE RECORDS SUMMARY | 2025-05-12 08:18 | XMS_ITS | Patient Health Record ---
Author Organization [facility] Address [address] [place] [address] Support Name Relationship Address Phone MARCEL SAMMIE Guarantor Unknown [phone] Reason For Referral No Information Medications Medication SIG (Take, Route, Frequency, Duration) Notes Start Date End Date Status Citalopram Hydrobromide 20MG 1 ORAL daily; Duration: -3 Jose-MJ 02/29/2012 Active Problems Problem Type SNOMED Code ICD Code Onset Dates Problem Status W/U Status Risk Notes Problem Depressive disorder (14427984) Depressive disorder, not elsewhere classified (311) Active confirmed Major Problem Gynecological examination normal (094566213102259) Routine gynecological examination (V72.31) Active confirmed Diag Plan Of Treatment No Information Insurance Providers Payer Name Payer Address Payer Phone Subscriber Number Group Number Insured Name Patient Relationship to Insured Coverage Start Date Coverage End Date [facility] [facility] [address] [address] [place] [address] [id number] SAMMIE ROD Self - patient is the insured
--- OUTSIDE RECORDS SUMMARY | 2025-05-12 08:18 | XMS_ITS | Clinical Summary ---
Author Organization [facility] Address [address] [place] [id number] Phone Care Team Providers Care Ct Scan Technologist Name Role Phone Kaz Gillette Primary Care Provider + Allergies Active Allergy Reactions Criticality Noted Date Comments Codeine Anxiety Low 12/06/2023 Vtooubqq-Ckwflwyrah-Gljjbidfu Rash Low 2023 Medications citalopram (CELEXA) 40 MG tablet Orally Active CLONAZEPAM ORAL Take 1 mg by mouth 2 (two) times a day. Active Active Problems Problem Noted Date Diagnosed Date Postmenopausal bleeding 12/06/2023 Overview (12/06/2023): 1 episode, after sex with a new partner few months ago Assessment & Plan (12/06/2023 6:11 PM EST): Plan pelvic ultrasound and proceed if indicated if lining is greater than 4 mm Multiple thyroid nodules 12/06/2023 Overview (12/06/2023): Status post a partial thyroidectomy on the left many years ago for nodules Reports 2 months ago having an ultrasound and biopsy showing benign nodules. Also reports normal thyroid hormone testing. Records of all that not available Assessment & Plan (12/06/2023 6:08 PM EST): Most of today's visit was spent discussing her concerns that an big data platform architect refused to see her, please see discussion outlined above The best I can recommend is that it is very likely the big data platform architect feels that here she has no treatment to offer and that following testing serially with her GP is the next best step. She is concerned this is not adequate. Specially if she has some pain on the neck, I highly recommend she give a call to her GP's office, see if she could be seen sooner than March, and inquire if the next best step is a referral to an big data platform architect, or to a surgeon because of the pain, or to simply proceed with serial thyroid hormone testing Family History Medical History Relation Comments Cancer Maternal Aunt 2 CV disease Maternal Uncle 2 Relation Status Comments Maternal Aunt 1 Maternal Aunt 2 Maternal Uncle 1 Maternal Uncle 2 Social History Tobacco Use Types Packs/Day Years Used Date Smoking Tobacco: Former Cigarettes Smokeless Tobacco: Never Tobacco Cessation:Counseling Given: Not Answered Alcohol Use Standard Drinks/Week Comments Not Currently 0 (1 standard drink = 0.6 oz pur e alcohol) Education Answer Date Recorded Are you interested in more education? Not on chester e 02/16/2023 Are you concerned about learning? Not on file 02/16/2023 No 02/16/2023 No 02/16/2023 Digital Access Answer Date Recorded No 03/17/2023 No 03/17/2023 Reliable internet access at home? Not on file 03/17/2023 Device with a working camera? Not on file Comments Unknown Sex and Gender Information Value Date Recorded Sex Assigned at Not on file Legal Sex Female 9:51 PM EDT Gender Identity Not on file Sexual Orientation Not on file Last Filed Vital Signs Vital Sign Reading Time Taken Comments Blood Pressure 134/84 12/06/2023 2:14 PM EST Pulse 80 12/28/2016 2:37 AM EST Temperature - - Respiratory Rate - - Oxygen Saturation - - Inhaled Oxygen Concentration - - Weight 77.1 kg (170 lb) 12/06/2023 2:14 PM EST Height 167.1 cm (5' 5.8 ) 12/06/2023 2:14 PM EST Body Mass Index 27.61 12/06/2023 2:14 PM EST Plan of Treatment Health Maintenance Due Date Last Done Comments LIPID PANEL 1958 DEPRESSION SCREENING 1970 SMOKING Hx and SMOKELESS TOB ACCO SCREENING 1971 SCREENING FOR DIABETES 1993 MAMMOGRAM 1998 COLOGUARD 2003 COLONOSCOPY 2003 COLORECTAL CANCER SCREENING 2003 FIT TEST 2003 FOBT 2003 SIGMOIDOSCOPY 2003 VIRTUAL COLONOSCOPY 2003 PNEUMOCOCCAL VACCINES (50+ y ears) (1 of 1 - PCV) 2008 ZOSTER VACCINES (1 of 2) 2008 OSTEOPOROSIS SCREENING INITI AL (ONE-TIME) 2023 COVID-19 VACCINE (1 - 2023-2 5 season) 2024 Adult Td,Tdap Booster 11/14/2029 11/14/2019 RSV VACCINE (1 - 1-dose 75+ series) 2033 HEPATITIS C SCREENING Completed 12/27/2023 HEPATITIS A VACCINES Aged Out No long er eligible based on patient's age to complete this topic HIB VACCINES Aged Out No longer eligi ble based on patient's age to complete this topic MENINGOCOCCAL VACCINES (ACWY) Aged Out No longer eligible based on patient's age to complete this topic MENINGOCOCCAL VACCINES (B) Aged Out N o longer eligible based on patient's age to complete this topic Medical Devices Not on file Procedures Procedure Name Priority Date/Time Associated Diagnosis Comments HEPATITIS C ANTIBODY, QUALITATIVE Routine 12/27/2023 8:56 AM EST Need for hepatitis C screening test from Last 3 Months or Most Recently Relevant to Health Maintenance Results * Hepatitis C antibody, qualitative (12/27/2023 8:56 AM EST) HCV NON-REACTIV E NON-REACTI VE [facility] Blood 12/27/2023 8:56 AM EST 12/27/2023 9:08 AM EST us Vee Spencer MD LAB BLOOD ORDERABLES Final Resul t [facility] [address] [place] [address] from Last 3 Months or Most Recently Relevant to Health Maintenance Insurance MEDICARE PART A & B Member Subscriber Plan / Payer (Ef fective 2014-Present) Name:Bren Bustamante Member ID:[id number] Relation to Subscriber:Self Name:Bren Bustamante Subscriber ID:[id number] Payer ID:[id number] Group ID:Not on file Type:Medicare Address: [employer] [address] ONE CARE MEDICARE REPLACEMENT [facility] MEDICARE PART A & B [facility] CL[facility] CARE MEDICARE REPLACEMENT [facility] [address] [place] MEDICARE PART A & [place] MEDICARE PART A & [place] MEDICARE PART A & B MEDICARE REPLACEMENT MEDICARE PART A & B MEDICARE PART A & B [facility] MEDICARE REPLACEMENT [place] MEDICARE PART A & B CARE MEDICARE REPLACEMENT [place] MEDICARE PART A & [place] [address] [place] [address] CARE MEDICARE REPLACEMENT [place] [address] [id number] Scan Technologist Relationship Specialty Start Date End Date Kaz Gillette PA [address] [place] [address] PCP - General Physician Teaching Artist 11/01/23 Additional Source Comments The information contained in this document represents components of the legal health record. It is not the complete legal health record.[facility]
[2025-05-12 10:44] LABS: Free T4 (Free Thyroxine) 1.52 ng/dL (0.71-1.85); Thyroid Stimulating Hormone 0.31 uIU/mL (0.32-4.0)
== END 2025-05-12 08:14 | disposition home or self-care (01) ==
LOC: HO.10HDL 08:13
PROVIDERS: Visit Provider Student in an Organized Health Care Education/Training Program
DX: E04.2 Nontoxic multinodular goiter (principal); E03.9 Hypothyroidism, unspecified
CPT/HCPCS: 36415; 84439; 84443

== ENCOUNTER 2025-05-27 14:59 | Outpatient (AMB) | payer OTHER, SELFPAY ==
[2025-05-27 15:08] VITALS: BP 142/78; PULSE 67; O2SAT 96; BMI 26.5
--- NOTE | 2025-05-27 15:08 | MHC.OFFVIS ---
Vital Signs 05/27/25 15:08 Height 5 ft 6 in Weight 163 lb 15.739 oz BMI 26.5 BP 142/78 H Blood Pressure Location Rt brachial Position Sitting Pulse 67 Pulse Source Pulse Oximeter Pulse Oximetry (%) 96 Oxygen Delivery Method Room Air Intake Visit Reasons: Post op f/u Intake Note: Patient present today for Lab Results Piece Dyeing Machine Tender Required: No Accompanied by: Friend Allergies losartan Adverse Reaction (Intermediate, Verified 10/01/24 16:43) GI upset Codeine Sulfate Allergy (Unknown, Uncoded 10/01/24 13:02) Agitated Neosporin Allergy (Unknown, Uncoded 10/01/24 13:02) Hives Medication List - Last Reconciled 05/27/25 by Ivone Ardon MD clonazepam 1 mg PO BID PRN clotrimazole-betamethasone 1-0.05 % 1 appl topical BID 30 days levothyroxine 112 mcg PO DAILY lisinopril 10 mg PO DAILY Held on 04/23/25. Instructions: Doctor's Order lisinopril 20 mg PO DAILY 90 days HPI Comments Details: 64-year-old female coming in today for follow up of multinodular goiter. HPI from prior visit S/ P left lobectomy either at [facility] or [facility] 15 years ago for thyroid nodules which per patient were biopsied and they couldnt find much in it , per patient pathology post surgery was benign. Dr. Nasrin Morley was her prior wire loop machine operator. I dono t have these records at this time. Thyroid ultrasound from 08/06/2023 showed a dominant right inferior 2.3 cm nodule, solid, isoechoic punctate echogenic foci. Other subcentimeter nodules noted. Patient underwent FNA of the right 2.3 cm dominant nodule on 08/27/2023 which came back benign ([place] category 2). Most recent thyroid ultrasound done on 08/05/2024 (I reviewed the images myself) again showed multiple subcentimeter right-sided lymph nodes in her right dominant mid lobe 2.6 cm nodule which has increased in size to 2.1 X 2.6 X 2.1 cm from previous size of 2.3 X 1.9 X 2 cm. Volume from 4.5 mL to 6 ml. The nodule is, solid, hyperechoic, taller than wide, with irregular margins. No recent TFTs in the system. 09/17/2024 underwent FNA of the right mid/inferior 2.6 cm nodule which came back as AUS ([place] category 3) with microfollicles without nuclear atypia, Afirma DICER1 mutation. She is here today to discuss these results. Patient currently denies heat or cold intolerance, diarrhea or constipation, weight changes, mood changes, low energy, changes in appearance of eyes or vision changes, tremors, increased diaphoresis or dry skin. ? Reports intermittent palpitations. She reports excessive anxiety. Reports hair loss. She does describe some degree of difficulty swallowing, no changes in her voice. She does express some tenderness and pressure. Patient denies any history of childhood neck radiation. Denies having ever used lithium, amiodarone or biotin supplements. Patient denies any family history of thyroid cancer or thyroid disease. Patient doesnt know her family medical history. Quit smoking 36 years ago. Interval history December 2024: Had genetic testing in consultation with [facility] genetics, where germline testing was negative for DICER1. They recommended no further screening is required in 2 based cancer screenings and patient's personal and family history. 04/07/2025: Status post right completion thyroidectomy with benign pathology, official pathology report is missing Started on 112 mcg of levothyroxine post surgery 05/12/2025: TSH low at 0.31, normal free T4 at 1.52. Physical exam General: sitting comfortably in no acute distress HEENT: normocephalic/atraumatic, moist oral mucosa Neck: supple, well healed surgical scar Cardiac: normal heart sounds Pulm: normal breath sounds B/L, no added breath sounds Abd: not distended, no tenderness Extremities: no edema, no signs of myxedema Neuro: AAO x3, Speech: normal, no facial droop, moving all 4 extremities Labs Laboratory Tests 08/28/24 13:56 TSH 1.26 Free T4 1.30 Laboratory Tests 08/28/24 05/12/25 13:56 08:25 TSH 1.26 0.31 L Free T4 1.30 1.52 Imaging US THYROID 08/05/2024 CLINICAL INFORMATION: Nontoxic multinodular goiter. COMPARISON: Ultrasound-guided thyroid biopsy dated 08/27/2023. Ultrasound soft tissue head/neck thyroid dated 08/06/2023. TECHNIQUE: Linear transducer grayscale and color Doppler examination with attention to the region of the thyroid. FINDINGS: Submitted for interpretation on August 25, 2024. SIZE: Measurements of the solitary right thyroid lobe and nodules are given in sagittal, anteroposterior and transverse dimensions respectively. Right Thyroid Lobe: 6.4 x 2.3 x 2.1 cm, volume 15.7 mL. Previously 5.8 x 2.4 x 2.8 cm, volume 20.4 mL. Parenchyma: The gland echotexture is homogeneous. Thyroid vascularity is normal. Left Thyroid Lobe: Surgically absent. Isthmus: 0.5 cm in maximum AP dimension. Previously 0.5 cm. Estimated total number of nodules greater than or equal to 1 cm: 1. Analyst Business Analysis nodules are described as follows: 1. Location: Right superior. Size: 0.4 x 0.2 x 0.2 cm, volume 0.009 mL. Previously: 0.4 x 0.3 x 0.4 cm, volume 0.03 mL. Nodule characteristics: Composition: Solid (2). Echogenicity: Isoechoic (1). Shape: Not taller than wide (0). Margins: Smooth (0). Echogenic Foci: None (0). ACR TI-RADS total points: 3 Previous: 3 ACR TI-RADS category: 3 Previous: 3 Significant change in size (>/= 20% in 2 dimensions and minimal increase of 2 mm or 50% or greater increase in volume): Change in features: Change in ACR TI-RADS risk category: 2. Location: Right superior. Size: 0.3 x 0.2 x 0.4 cm, volume 0.015 mL. Previously: New since the previous study. Nodule characteristics: Composition: Cystic(0). ACR TI-RADS total points: 0 ACR TI-RADS category: 1 3. Location: Right mid. Size: 2.1 x 2.6 x 2.1 cm, volume 6.0 mL. Previously: 2.3 x 1.9 x 2.0 cm, volume 4.5 mL. Nodule characteristics: Composition: Solid (2). Echogenicity: Hyperechoic (1). Shape: Taller than wide (3). Margins: Irregular (2). Echogenic Foci: None (0). ACR TI-RADS total points: 8 Previous: 6 ACR TI-RADS category: 5 Previous: 4 Significant change in size (>/= 20% in 2 dimensions and minimal increase of 2 mm or 50% or greater increase in volume): Change in features: Change in ACR TI-RADS risk category: 4. Location: Right inferior. Size: 0.7 x 0.4 x 0.6 cm, volume 0.1 mL. Previously: 0.6 x 0.4 x 0.6 cm, volume 0.08 mL. Nodule characteristics: Composition: Solid (2). Echogenicity: Hypoechoic (2). Shape: Not taller than wide (0). Margins: Smooth (0). Echogenic Foci: None (0). ACR TI-RADS total points: 4 Previous: 3 ACR TI-RADS category: 4 Previous: 3 Significant change in size (>/= 20% in 2 dimensions and minimal increase of 2 mm or 50% or greater increase in volume): Change in features: Change in ACR TI-RADS risk category: 5. Location: Right inferior. Size: 0.7 x 0.5 x 0.8 cm, volume 0.15 mL. Previously: 0.7 x 0.3 x 0.6 cm, volume 0.07 mL. Nodule characteristics: Composition: Solid (2). Echogenicity: Hypoechoic (2). Shape: Not taller than wide (0). Margins: Smooth (0). Echogenic Foci: None (0). ACR TI-RADS total points: 4 Previous: 4 ACR TI-RADS category: 4 Previous: 4 Significant change in size (>/= 20% in 2 dimensions and minimal increase of 2 mm or 50% or greater increase in volume): Change in features: Change in ACR TI-RADS risk category: NODES: No lymphadenopathy is seen in the tissue surrounding the thyroid gland. US/US thyroid IMPRESSION: ACR BI-RADS 2. 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 Mother No problems noted. Social History (Updated 04/15/25 @ 14:03 by Kaz Gillette PA-C) Housing: House Alcohol intake: current Alcohol intake frequency: holidays/special occasions only Alcohol type: wine Patient Tobacco Use Status: Never used Tobacco e-Cigarette/Vaping Use: Never Used service: No Current occupational status: disabled Cognitive needs: No Hearing needs: No Vision needs: No Physical Exam Vital Signs: Last Vital Signs Pulse 67 05/27/25 15:08 BP 142/78 H 05/27/25 15:08 Pulse Ox 96 05/27/25 15:08 Oxygen Delivery Method Room Air 05/27/25 15:08 BMI result Body Mass Index 26.5 Assessment & Plan Assessment & Plan (1) Multiple thyroid nodules: Code(s): E04.2 - Nontoxic multinodular goiter Category: Medical Plan: 64-year-old female with no family history of thyroid cancer, with no personal history of head or neck radiation who is status post left lobectomy 15 years ago with benign pathology, who has multiple right-sided thyroid nodules with a dominant 2.6 cm right lobe nodule. She had biopsy of this nodule 08/27/2023 which came back as benign cytology ([place] category 2). However most recent ultrasound done in July 2024 showed increase in the size of the nodule from 2.3 cm in maximum dimension to 2.6 cm. There is also reported change in features of the nodule which now appears more irregular/lobulated. It has punctate echogenic foci. Given change in size of the nodule with change in characteristics appearing more lobulated/with possible extrathyroidal extension posteriorly, we proceeded with repeat FNA..09/17/2024 underwent FNA of the right mid/inferior 2.6 cm nodule which came back as AUS ([place] category 3) with microfollicles without nuclear atypia, Afirma showed DICER 1 mutation ( 50 % risk of malignancy). I explained to the patient that DICER1 mutation is associated with both benign and malignant tumors. We referred her to Dr. Ever Trinh at [facility] for completion right thyroidectomy. TSH normal from August 2024. December 2024: Had genetic testing in consultation with [facility] genetics, where germline testing was negative for DICER1. They recommended no further screening is required in 2 based cancer screenings and patient's personal and family history. 04/07/2025: Status post right completion thyroidectomy with benign pathology, official pathology report is missing Started on 112 mcg of levothyroxine post surgery 05/12/2025: TSH low at 0.31, normal free T4 at 1.52. At this point we will reduce the levothyroxine. Plan: -decrease levothyroxine to 112 mcg daily from Sunday to Sunday and only half a pill on Sundays. -repeat TSH and free T4 in 6 weeks, we will reach out with the results -follow up in December 2025 with blood work before that appointment -obtain official pathology report from [facility] (2) Hypothyroid: Code(s): E03.9 - Hypothyroidism, unspecified Category: Medical Qualifiers: Hypothyroidism type: postoperative Qualified Code(s): E89.0 - Postprocedural hypothyroidism Plan: Patient with postsurgical hypothyroidism status post completion right thyroidectomy 04/07/[address] Ever Trinh at [facility]. Started on levothyroxine 112 mcg daily postoperatively. Labs from 05/12/2026 showed TSH was low at 0.31, normal free T4 at 1.52. At this point we will reduce the levothyroxine. Plan: -decrease levothyroxine to 112 mcg daily from Sunday to Sunday and only half a pill on Sundays. -repeat TSH and free T4 in 6 weeks, we will reach out with the results Plan I spent 30 minutes in reviewing the record, seeing the patient and documenting in the medical record. Orders: Orders Thyroid Stimulating Hormone 6 Weeks E89.0 - Postprocedural hypothyroidism Free T4 (Free Thyroxine) 6 Weeks E89.0 - Postprocedural hypothyroidism Medications: Changed From levothyroxine 112 mcg PO DAILY E89.0 - Postprocedural hypothyroidism To levothyroxine orally daily; 1 tablet daily Sunday to Sunday and half a tablet on Sundays 30 tabs 4RF E89.0 - Postprocedural hypothyroidism Patient Instructions: Reduce levothyroxine to 112 mcg 1 tablet daily Sunday to Sunday and only half a tablet on Sundays. Repeat blood work in 6 weeks, we will reach out with the results Follow up in December 2025, blood work we will need to be done prior to that visit as well Coding Level of Care Code Est Pt Level 4 (21321) Diagnoses Multiple thyroid nodules E04.2 Postoperative hypothyroidism E89.0 Hypothyroidism type: postoperative Time Spent (min) 30
--- OUTSIDE RECORDS SUMMARY | 2025-05-27 15:30 | XMS_ITS | Continuity of Care Document ---
Author Organization [facility] Address [address] [place] [address] Phone [phone] Social History Type Date Description Comments Sex Female Sex Unknown Medical Devices Description No Information Available Encounters Description No Information Available Assessments Description No Information Available Plan of Treatment No Information Available Functional Status Description No Information Available Mental Status Description No Information Available Referrals Description No Information Available
--- OUTSIDE RECORDS SUMMARY | 2025-05-27 15:30 | XMS_ITS | Clinical Summary ---
Author Organization [facility] Address [address] [place] [address] Phone Care Team Providers Care Store Manager Name Role Phone Kaz Gillette Primary Care Provider + Allergies Active Allergy Reactions Criticality Noted Date Comments Codeine Anxiety Low 12/06/2023 Ezinmtvb-Opdizzlrme-Pykzjgntk Rash Low 2023 Medications citalopram (CELEXA) 40 [...] was spent discussing her concerns that an director of optimization refused to see her, please see discussion outlined above The best I can recommend is that it is very likely the director of optimization feels that here she has no treatment [...] best step is a referral to an director of optimization, or to a surgeon because of the [...] AM EST) HCV NON-REACTIV E NON-REACTI VE [facility] Blood 12/27/2023 8:56 AM EST 12/27/2023 9:08 AM EST us Vee Spencer MD LAB BLOOD ORDERABLES Final Resul t [facility] [address] [place] [address] from Last 3 Months or Most Recently Relevant to Health Maintenance Insurance MEDICARE PART A & B Member Subscriber Plan / Payer (Ef fective 2014-Present) Name:Bren Bustamante Member ID:[id number] Relation to Subscriber:Self Name:Bren Bustamante Subscriber ID:[id number] Payer ID:[id number] Group ID:Not on file Type:Medicare Address: [employer] [address] ONE CARE MEDICARE REPLACEMENT HI STREETER [facility] MEDICARE PART A & B [facility] CARE MEDICARE REPLACEMENT HI STREETER [facility] [place], [place] MEDICARE PART A & B [place] MEDICARE PART A & B [place] MEDICARE PART A & B MEDICARE REPLACEMENT MEDICARE PART A & B MEDICARE PART A & B [facility] MEDICARE REPLACEMENT [place] MEDICARE PART A & B CARE MEDICARE REPLACEMENT [place] MEDICARE PART A & [place] [address] CARE MEDICARE REPLACEMENT [place] [id number] Care Teams Store Manager Relationship Specialty Start Date End Date Kaz Gillette PA [address] [place] [address] PCP - General Physician Commissioned Security Officer 11/01/23 Additional Source Comments The information contained in this document represents components of the legal health record. It is not the complete legal health record.[facility]
--- OUTSIDE RECORDS SUMMARY | 2025-05-27 15:30 | XMS_ITS | Patient Health Record ---
Author Organization [facility] [place] Address [address] [place] [address] Support Name Relationship Address Phone MARCEL SAMMIE Guarantor Unknown Reason For Referral No Information Medications Medication SIG (Take, Route, Frequency, Duration) Notes Start Date End Date Status Citalopram Hydrobromide 20MG 1 ORAL daily; Duration: -3 Jose-MJ 02/29/2012 Active Problems Problem Type SNOMED Code ICD Code Onset Dates Problem Status W/U Status Risk Notes Problem Depressive disorder (83457980) Depressive disorder, not elsewhere classified (311) Active confirmed Major Problem Gynecological examination normal (617488602600427) Routine gynecological examination (V72.31) Active confirmed Diag Plan Of Treatment No Information Insurance Providers Payer Name Payer Address Payer Phone Subscriber Number Group Number Insured Name Patient Relationship to Insured Coverage Start Date Coverage End Date [facility] [employer] [facility] [address] [address] [place] [address] [id number] SAMMIE ROD Self - patient is the insured
== END 2025-05-27 15:31 | disposition home or self-care (01) ==
LOC: HO.ENCR 15:00
PROVIDERS: PCP Physician Assistant; Visit Provider Student in an Organized Health Care Education/Training Program
DX: E04.2 Nontoxic multinodular goiter (principal); E89.0 Postprocedural hypothyroidism
CPT/HCPCS: 99214

== ENCOUNTER → 2025-05-27 14:59 | Outpatient (BNVA) | payer OTHER, SELFPAY | PROVIDERS: PCP Physician Assistant; Visit Provider Student in an Organized Health Care Education/Training Program | DX: E89.0 Postprocedural hypothyroidism (principal); E04.2 Nontoxic multinodular goiter; Z15.89 Genetic susceptibility to other disease | CPT/HCPCS: 99212 ==

== ENCOUNTER 2025-06-03 13:03 | Outpatient (REF) | payer OTHER, SELFPAY ==
--- OUTSIDE RECORDS SUMMARY | 2025-06-03 13:35 | XMS_ITS | Patient Health Record ---
Author Organization [facility] Address [address] [place] [address] Support Name Relationship Address Phone SAMMIE ROD Guarantor Unknown Reason For Referral No Information Medications Medication SIG (Take, Route, Frequency, Duration) Notes Start Date End Date Status Citalopram Hydrobromide 20MG 1 ORAL daily; Duration: -3 Jose-MJ 02/29/2012 Active Problems Problem Type SNOMED Code ICD Code Onset Dates Problem Status W/U Status Risk Notes Problem Depressive disorder (88478599) Depressive disorder, not elsewhere classified (311) Active confirmed Major Problem Routine gynecological examination (V72.31) Active confirmed Diag Plan Of Treatment No Information Insurance Providers Payer Name Payer Address Payer Phone Subscriber Number Group Number Insured Name Patient Relationship to Insured Coverage Start Date Coverage End Date [facility] [id number] [facility] [address] [address] [place] [address] [id number] SAMMIE ROD Self - patient is the insured
--- OUTSIDE RECORDS SUMMARY | 2025-06-03 13:35 | XMS_ITS | Clinical Summary ---
Author Organization [facility] Address [address] [place] [address] Phone Care Team Providers Care Hha Name Role Phone Kaz Gillette Primary Care Provider + Allergies Active Allergy Reactions Criticality Noted Date Comments Codeine Anxiety Low 12/06/2023 Gqraamom-Pkchdbaojt-Vpmdwdxwv Rash Low 2023 Medications citalopram (CELEXA) 40 [...] was spent discussing her concerns that an analysis or research safety inspector refused to see her, please see discussion outlined above The best I can recommend is that it is very likely the analysis or research safety inspector feels that here she has no treatment [...] best step is a referral to an analysis or research safety inspector, or to a surgeon because of the [...] AM EST) HCV NON-REACTIV E NON-REACTI VE [facility] Blood 12/27/2023 8:56 AM EST 12/27/2023 9:08 AM EST us Vee Spencer MD LAB BLOOD ORDERABLES Final Resul t [facility] [address] [place] [address] from Last 3 Months or Most Recently Relevant to Health Maintenance Insurance MEDICARE PART A & B Member Subscriber Plan / Payer (Ef fective 2014-Present) Name:Bren Bustamante Member ID:[id number] Relation to Subscriber:Self Name:Bren Bustamante Subscriber ID:[id number] Payer ID:[id number] Group ID:Not on file Type:Medicare Address: [employer] [address] ONE CARE MEDICARE REPLACEMENT HI STREETER [facility] MEDICARE PART A & B [facility] CARE MEDICARE REPLACEMENT HI STREETER [facility] [place], [place] MEDICARE PART A & B [place] PART A & B [place] MEDIC[place] PART A & B MEDICARE REPLACEMENT MEDICARE PART A & B MEDICARE PART A & B ONE [facility] MEDICARE REPLACEMENT [place] MEDICARE PART A & B CARE MEDICARE REPLACEMENT [place], [place] MEDICARE PART A & [place] [address] CARE MEDICARE REPLACEMENT [place] [id number] Care Teams Hha Relationship Specialty Start Date End Date Kaz Gillette PA [address] [place] [address] PCP - General Physician Roller Skater 11/01/23 Additional Source Comments The information contained in this document represents components of the legal health record. It is not the complete legal health record.[facility]
--- OUTSIDE RECORDS SUMMARY | 2025-06-03 13:35 | XMS_ITS | Continuity of Care Document ---
Author Organization [facility] Address [address] [place] [address] Phone [phone] Social History Type Date Description Comments Sex Female Sex Unknown Medical Devices Description No Information Available Encounters Description No Information Available Assessments Description No Information Available Plan of Treatment No Information Available Functional Status Description No Information Available Mental Status Description No Information Available Referrals Description No Information Available
== END 2025-06-03 13:04 | disposition home or self-care (01) ==
LOC: HO.LAB 13:03
PROVIDERS: Visit Provider Internal Medicine
DX: Z13.89 Encounter for screening for other disorder (principal)

== ENCOUNTER 2025-06-04 11:57 | Outpatient (REF) | payer OTHER, SELFPAY ==
--- OUTSIDE RECORDS SUMMARY | 2025-06-04 12:59 | XMS_ITS | Clinical Summary ---
Author Organization [facility] Address [address] [place] [address] Phone Care Team Providers Care Industrial Designer Name Role Phone Kaz Gillette Primary Care Provider + Allergies Active Allergy Reactions Criticality Noted Date Comments Codeine Anxiety Low 12/06/2023 Qfbzwdaj-Jkussdhxie-Zfsutnnef Rash Low 2023 Medications citalopram (CELEXA) 40 [...] was spent discussing her concerns that an railway engineer refused to see her, please see discussion outlined above The best I can recommend is that it is very likely the railway engineer feels that here she has no treatment [...] best step is a referral to an railway engineer, or to a surgeon because of the [...] AM EST) HCV NON-REACTIV E NON-REACTI VE [facility] Blood 12/27/2023 8:56 AM EST 12/27/2023 9:08 AM EST us Vee Spencer MD LAB BLOOD ORDERABLES Final Resul t [facility] [address] [place] [address] from Last 3 Months or Most Recently Relevant to Health Maintenance Insurance MEDICARE PART A & B Member Subscriber Plan / Payer (Ef fective 2014-Present) Name:Bren Bustamante Member ID:[id number] Relation to Subscriber:Self Name:Bren Bustamante Subscriber ID:[id number] Payer ID:[id number] Group ID:Not on file Type:Medicare Address: [employer] [address] ONE CARE MEDICARE REPLACEMENT HI STREETER [facility] MEDICARE PART A & B [facility] CARE MEDICARE REPLACEMENT HI STREETER [facility] [place], [place] MEDICARE PART A & B [place] MEDICARE PART A & B [place] MEDICARE PART A & B MEDICARE REPLACEMENT MEDICARE PART A & B MEDICARE PART A & B [facility] MEDICARE REPLACEMENT [place] MEDICARE PART A & B CARE MEDICARE REPLACEMENT [place], [place] MEDICARE PART A [place] [address] [place] [address] CARE MEDICARE REPLACEMENT [place] [id number] Care Teams Industrial Designer Relationship Specialty Start Date End Date Kaz Gillette PA [address] [place] [address] PCP - General Physician Produce Department Supervisor 11/01/23 Additional Source Comments The information contained in this document represents components of the legal health record. It is not the complete legal health record.[facility]
--- OUTSIDE RECORDS SUMMARY | 2025-06-04 12:59 | XMS_ITS | Continuity of Care Document ---
Author Organization [facility] Address [address] [place] [address] Phone [phone] Social History Type Date Description Comments Sex Female Sex Unknown Medical Devices Description No Information Available Encounters Description No Information Available Assessments Description No Information Available Plan of Treatment No Information Available Functional Status Description No Information Available Mental Status Description No Information Available Referrals Description No Information Available
--- OUTSIDE RECORDS SUMMARY | 2025-06-04 13:00 | XMS_ITS | Patient Health Record ---
Author Organization [facility] Address [address] [place] [address] Support Name Relationship Address Phone SAMMIE ROD Guarantor Unknown [phone] Reason For Referral No Information Medications Medication SIG (Take, Route, Frequency, Duration) Notes Start Date End Date Status Citalopram Hydrobromide 20MG 1 ORAL daily; Duration: -3 Jose-MJ 02/29/2012 Active Problems Problem Type SNOMED Code ICD Code Onset Dates Problem Status W/U Status Risk Notes Problem Depressive disorder, not elsewhere classified (311) Active confirmed Major Problem Gynecological examination normal (257201443321585) Routine gynecological examination (V72.31) Active confirmed Diag Plan Of Treatment No Information Insurance Providers Payer Name Payer Address Payer Phone Subscriber Number Group Number Insured Name Patient Relationship to Insured Coverage Start Date Coverage End Date [facility] [address] [address] [place] [address] [id number] SAMMIE ROD Self - patient is the insured
== END 2025-06-04 11:58 | disposition home or self-care (01) ==
LOC: HO.LNP 11:57
PROVIDERS: Visit Provider Internal Medicine
DX: I10 Essential (primary) hypertension (principal)
CPT/HCPCS: 87338

== ENCOUNTER 2025-07-08 11:22 | Outpatient (REF) | payer OTHER, SELFPAY ==
[2025-07-08 13:05] LABS: Free T4 (Free Thyroxine) 1.43 ng/dL (0.71-1.85); Thyroid Stimulating Hormone 0.69 uIU/mL (0.32-4.0)
--- OUTSIDE RECORDS SUMMARY | 2025-07-08 14:49 | XMS_ITS | Continuity of Care Document ---
Author Organization [facility] Address [address] [place] [address] Phone [phone] Social History Type Date Description Comments Sex Female Sex Unknown Medical Devices Description No Information Available Encounters Description No Information Available Assessments Description No Information Available Plan of Treatment No Information Available Functional Status Description No Information Available Mental Status Description No Information Available Referrals Description No Information Available
--- OUTSIDE RECORDS SUMMARY | 2025-07-08 14:49 | XMS_ITS | Patient Health Record ---
Author Organization [facility] Address [address] [place] [address] Support Name Relationship Address Phone MARCEL SAMMIE Guarantor Unknown Reason For Referral No Information Medications Medication SIG (Take, Route, Frequency, Duration) Notes Start Date End Date Status Citalopram Hydrobromide 20MG 1 ORAL daily; Duration: -3 Jose-MJ 02/29/2012 Active Problems Problem Type SNOMED Code ICD Code Onset Dates Problem Status W/U Status Risk Notes Problem Depressive disorder (98276239) Depressive disorder, not elsewhere classified (311) Active confirmed Major Problem Gynecological examination normal (100811506080825) Routine gynecological examination (V72.31) Active confirmed Diag Plan Of Treatment No Information Insurance Providers Payer Name Payer Address Payer Phone Subscriber Number Group Number Insured Name Patient Relationship to Insured Coverage Start Date Coverage End Date [facility] [facility] [address] [address] [place] [address] [id number] SAMMIE ROD Self - patient is the insured
--- OUTSIDE RECORDS SUMMARY | 2025-07-08 14:49 | XMS_ITS | Clinical Summary ---
Author Organization [facility] Address [address] [place] [address] Phone Care Team Providers Care Air Breaker Operator Name Role Phone Kaz Gillette Primary Care Provider + Allergies Active Allergy Reactions Criticality Noted Date Comments Codeine Anxiety Low 12/06/2023 Dpshwdte-Jfjidfqnup-Yrmdsgeqg Rash Low 2023 Medications citalopram (CELEXA) 40 [...] was spent discussing her concerns that an material control manager refused to see her, please see discussion outlined above The best I can recommend is that it is very likely the material control manager feels that here she has no treatment [...] best step is a referral to an material control manager, or to a surgeon because of the [...] 2008 OSTEOPOROSIS SCREENING INITI AL (ONE-TIME) 2023 INFLUENZA VACCINE (#1) 2025 08/01/2016 COVID-19 VACCINE (1 - 2023-2 5 season) 2025 Adult Td,Tdap Booster 11/14/2029 11/14/2019 RSV VACCINE [...] AM EST) HCV NON-REACTIV E NON-REACTI VE [facility] Blood 12/27/2023 8:56 AM EST 12/27/2023 9:08 AM EST us Vee Spencer MD LAB BLOOD ORDERABLES Final Resul t [facility] [address] [place] [address] from Last 3 Months or Most Recently Relevant to Health Maintenance Insurance MEDICARE PART A & B Member Subscriber Plan / Payer (Ef fective 2014-Present) Name:Bren Bustamante Member ID:[id number] Relation to Subscriber:Self Name:Bren Bustamante Subscriber ID:[id number] Payer ID:[id number] Group ID:Not on file Type:Medicare Address: Setup [address] ONE CARE MEDICARE REPLACEMENT MEDICARE PART A & B Member Subscriber Plan / Payer (Ef fective 2014-Present) Name:Bren Bustamante Member ID:[id number] Relation to Subscriber:Self Name:Bren Bustamante Subscriber ID:[id number] Payer ID:[id number] Group ID:Not on file Type:Medicare Address: Setup [address] [place] [id number] [place] [address] ONE CARE MEDICARE REPLACEMENT MEDICARE PART A & B MEDICARE PART A & B MEDICARE PART A & B Member Subscriber Plan / Payer (Ef fective 2014-Present) Name:Bren Bustamante Member ID:[id number] Relation to Subscriber:Self Name:Bren Bustamante Subscriber ID:[id number] Payer ID:[id number] Group ID:Not on file Type:Medicare Address: Setup [address] ONE CARE MEDICARE RE[place]ACEMENT [place] [facility] MEDICARE PART A & B MEDICARE PART A & B ONE CARE MEDICARE REPLACEMENT MEDICARE PART A & B CARE MEDICARE RE[place]ACEMENT [place] [id number] MEDICARE PART A & B Member Subscriber Plan / Payer (Ef fective 2014-Present) Name:Bren Bustamante Member ID:[id number] Relation to Subscriber:Self Name:Bren Bustamante Subscriber ID:[id number] Payer ID:[id number] Group ID:Not on file Type:Medicare Address: Setup [address] [place] [address] [place] [address] ONE CARE MEDICARE REPLACEMENT [place] [id number] Care Teams Air Breaker Operator Relationship Specialty Start Date End Date Kaz Gillette PA [address] [place] [address] PCP - General Physician Vat Tender 11/01/23 Additional Source Comments The information contained in this document represents components of the legal health record. It is not the complete legal health record.[facility]
== END 2025-07-08 11:23 | disposition home or self-care (01) ==
LOC: HO.LAB 11:22
PROVIDERS: PCP Physician Assistant; Visit Provider Student in an Organized Health Care Education/Training Program
DX: E89.0 Postprocedural hypothyroidism (principal)
CPT/HCPCS: 36415; 84439; 84443

== ENCOUNTER → 2025-09-24 10:02 | Outpatient (REF) | payer OTHER, SELFPAY ==
--- NOTE | 2025-09-24 10:08 | ECG_ITS ---
Test Reason : CHEST PAIN Blood Pressure : */* mmHG Vent. Rate : 59 BPM Atrial Rate : 59 BPM P-R Int : 162 ms QRS Dur : 82 ms QT Int : 404 ms P-R-T Axes : 50 3 -57 degrees QTcB Int : [address] & T wave abnormality, consider anterolateral ischemia Abnormal ECG No previous ECGs available Referred By: Kaz Gillette Electronically Signed By: SHANE DAI
[2025-09-24 10:51] LABS: Hematocrit 38.0 % (37.0-47.0); Hemoglobin 12.8 g/dl (12.0-16.0); Mean Corpuscular HGB Conc 33.7 g/dl (31.0-35.0); Mean Corpuscular Hemoglobin 29.6 pg (27.0-33.0); Mean Corpuscular Volume 87.8 fL (80.0-98.0); NRBC Abs Auto 0.000 X10*3/uL (0.0-0.012); NRBC Pct Auto 0.0 /100WBC (0.0-0.2); Platelet Count 345 X10*3/uL (160-400); Red Blood Count 4.33 X10*6/uL (4.20-5.50); White Blood Count 7.0 X10*3/uL (4.8-10.8)
[2025-09-24 11:29] LABS: Alanine Aminotransferase 16 U/L (0-31); Albumin Level 4.4 g/dL (3.5-5.0); Alkaline Phosphatase 74 U/L (39-117); Anion Gap 12 (12-20); Aspartate Amino Transferase 19 U/L (5-31); Blood Urea Nitrogen 17 mg/dL (9-16); Calcium 9.2 mg/dL (8.4-10.2); Carbon Dioxide 27 mmol/L (22-29); Chloride 108 mmol/L (96-108); Cholesterol 256 mg/dL (<200); Estimated Glomerular Filt Rate > 60; HDL Cholesterol 56 mg/dL (>40); Potassium 3.7 mmol/L (3.3-5.1); Sodium 143 mmol/L (135-145); Total Protein 7.5 g/dL (6.5-8.0); Triglycerides 120 mg/dL (<150)
--- OUTSIDE RECORDS SUMMARY | 2025-09-24 11:51 | XMS_ITS | Continuity of Care Document ---
Author Organization [facility] Address [address] [place] [address] Phone [phone] Social History Type Date Description Comments Sex Female Sex Unknown Medical Devices Description No Information Available Encounters Description No Information Available Assessments Description No Information Available Plan of Treatment No Information Available Functional Status Description No Information Available Mental Status Description No Information Available Referrals Description No Information Available
--- OUTSIDE RECORDS SUMMARY | 2025-09-24 11:51 | XMS_ITS | Clinical Summary ---
Author Organization [facility] Address [address] [place] [address] Phone Care Team Providers Care Data Center Technician Name Role Phone Kaz Gillette Primary Care Provider + Allergies Active Allergy Reactions Criticality Noted Date Comments Codeine Anxiety Low 12/06/2023 Htbxqcym-Ybmgibxsns-Onghxprdt Rash Low 2023 Medications citalopram (CELEXA) 40 [...] was spent discussing her concerns that an logistics engineer refused to see her, please see discussion outlined above The best I can recommend is that it is very likely the logistics engineer feels that here she has no [...] best step is a referral to an logistics engineer, or to a surgeon because of [...] DEPRESSION SCREENING 1970 SMOKING Hx and SMOKELESS TOBACCO SCREENING 1971 SCREENING FOR DIABETES 1993 MAMMOGRAM 1998 COLOGUARD 2003 COLONOSCOPY 2003 COLORECTAL CANCER SCREENING 2003 FIT TEST 2003 FOBT 2003 SIGMOIDOSCOPY 2003 VIRTUAL COLONOSCOPY 2003 PNEUMOCOCCAL VACCINES (50+ years) (1 of 1 - PCV) 2008 ZOSTER VACCINES (1 of 2) 2008 OSTEOPOROSIS SCREENING INITI AL (ONE-TIME) 2023 INFLUENZA VACCINE (#1) 2025 08/01/2016 COVID-19 VACCINE (1 - 2024-2 6 season) 2025 Adult Td,Tdap Booster 11/14/2029 11/14/2019 RSV VACCINE (1 - 1-dose 75+ series) 2033 HEPATITIS C SCREENING Completed 12/27/2023 , 12/27/2023 HEPATITIS A VACCINES Aged Out No [...] AM EST) HCV NON-REACTIV E NON-REACTI VE [facility] Blood 12/27/2023 8:56 AM EST 12/27/2023 9:08 AM EST us Vee Spencer MD LAB BLOOD BKR ORDERABLES Final R esult [facility] [address] [place] [address] from Last 3 Months or Most Recently Relevant to Health Maintenance Insurance MEDICARE PART A & B ONE CARE MEDICARE REPLACEMENT [facility] [facility] MEDICARE PART A & B [facility] ONE CARE MEDICARE REPLACEMENT [place] [id number] MEDICARE PART A & B MEDICARE PART A & B MEDICARE PART A & B [facility] ONE CARE MEDICARE REPLACEMENT [place] [facility] MEDICARE PART A & B MEDICARE PART A & B [facility] ONE CARE MEDICARE REPLACEMENT MEDICARE PART A & B CARE MEDICARE REPLACEMENT [place] [id number] MEDICARE PART A & B [facility] ONE CARE MEDICARE REPLACEMENT [place] [id number] Care Teams Data Center Technician Relationship Specialty Start Date End Date Kaz Gillette PA [address] [place] [address] PCP - General Physician Trimmer And Borer Machine Operator 11/01/23 Additional Source Comments The information contained in this document represents components of the legal health record. It is not the complete legal health record.[facility]
--- OUTSIDE RECORDS SUMMARY | 2025-09-24 11:52 | XMS_ITS | Patient Health Record ---
Author Organization [facility] Address [address] [place] [address] Support Name Relationship Address Phone MARCEL SAMMIE Guarantor Unknown Reason For Referral No Information Medications Medication SIG (Take, Route, Frequency, Duration) Notes Start Date End Date Status Citalopram Hydrobromide 20MG 1 ORAL daily; Duration: -3 Jose-MJ 02/29/2012 Active Problems Problem Type SNOMED Code ICD Code Onset Dates Problem Status W/U Status Risk Notes Problem Depressive disorder (21104351) Depressive disorder, not elsewhere classified (311) Active confirmed Major Problem Gynecological examination normal (980889580773910) Routine gynecological examination (V72.31) Active confirmed Diag Plan Of Treatment No Information Insurance Providers Payer Name Payer Address Payer Phone Subscriber Number Group Number Insured Name Patient Relationship to Insured Coverage Start Date Coverage End Date [facility] [address] [address] [place] [address] [id number] SAMMIE ROD Self - patient is the insured
[2025-09-24 12:21] LABS: Microalbum/Creatinine Ratio Ur 19.8 ug/mg cr (<30)
== END ==
LOC: HO.CARD 10:02
PROVIDERS: PCP Physician Assistant; Visit Provider Physician Assistant
DX: I10 Essential (primary) hypertension (principal); R07.9 Chest pain, unspecified; E78.9 Disorder of lipoprotein metabolism, unspecified
CPT/HCPCS: 36415; 80053; 80061; 82043; 82570; 85027; 93005

== ENCOUNTER → 2025-09-24 10:08 | Outpatient (BNV) | payer OTHER, SELFPAY | PROVIDERS: PCP Physician Assistant; Visit Provider Internal Medicine | DX: R00.1 Bradycardia, unspecified (principal) | CPT/HCPCS: 93010 ==